=== PATIENT | female | born 1955 | race Caucasian/White ===

== ENCOUNTER → 2020-02-12 14:25 | Outpatient (CLI) | payer BC, SELFPAY ==
--- NOTE | 2020-02-12 14:33 | XR_ITS ---
PROCEDURE: XR CHEST AP CLINICAL HISTORY: FLU LIKE SYMPTOMS, COUGH COMPARISON: No exams were available for comparison FINDINGS: The cardiomediastinal silhouette and pulmonary vascularity are within normal limits. The lungs are clear without infiltrates, suspicious nodules, or pleural effusions. No acute bony abnormalities. IMPRESSION: No acute findings. Dictated by: Kirby Manzo MD 02/12/2020 15:18 Electronically signed by Kirby Manzo MD in [facility] 02/12/2020 15:18
--- NOTE | 2020-02-13 19:30 | PC.NURSE ---
covid-19 test results negative. patient notified.
[2020-02-13 19:42] LABS: Covid-19 Nasal PCR Sendout Lex NOT DETECTED
--- NOTE | 2020-02-14 10:30 | PC.NURSE ---
Notified Holly LOPEZ of negative COVID 19 results
== END ==
PROVIDERS: Visit Provider Nurse Practitioner
DX: R68.89 Other general symptoms and signs (principal); R05 Cough
CPT/HCPCS: 71045

== ENCOUNTER → 2020-11-04 09:42 | Outpatient (CLI) | payer BC, SELFPAY ==
--- NOTE | 2020-11-04 09:48 | XR_ITS ---
PROCEDURE: XR LUMBAR SPINE MIN 4V CLINICAL INDICATION: LUMBAR PAIN W/RADICULOPATHY,S/P LUMBAR SURGERY COMPARISON: CR LS5 LUMBAR SPINE 5 VIEWS from 12/19/2016 FINDINGS: Mild diffuse levo scoliotic curvature between T11 and L5. 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 There are laminectomy defects L5. There are mild multilevel degenerate changes with disc space narrowing at the L2-3, L3-4 and L4-5 levels along with minor anterior osteophytic spurring at these levels. There are hypertrophic facet changes at the L4-5 and L5-S1 levels. There is suggestion of bony spinal stenosis at the L4 and L5 levels. There is no pars defect. The SI joints are normal. IMPRESSION: Mild multilevel degenerate changes moderate hypertrophic facet changes lower lumbar spine with suggestion of possible bony spinal stenosis and if clinically indicated follow-up CT scan lumbar spine would be helpful for additional evaluation. Dictated by: Dr. Reginaldo Mckoy MD 11/04/2020 10:35 Dr. Reginaldo Mckoy MD in [facility] 11/04/2020 10:35
== END ==
PROVIDERS: PCP Nurse Practitioner Family; Visit Provider Nurse Practitioner Family
DX: M54.16 Radiculopathy, lumbar region (principal); Z98.890 Other specified postprocedural states
CPT/HCPCS: 72110

== ENCOUNTER 2021-02-07 14:00 | Outpatient (RCR) | payer BC, SELFPAY ==
--- NOTE | 2020-12-13 10:40 | HMH.PTOPEV ---
PT Outpatient Evaluation Rehab PT Outpatient Evaluation Start: 12/13/20 09:48 Freq: Status: Active Protocol: Document 12/13/20 10:20 CASSIDY (Rec: 12/13/20 10:39 [email or web address] [id number]) Electronically Signed By Tae Jain, PT 12/13/20 10:20 Outpatient Therapy Subjective History Subjective History Patient is a 65 year old female presenting to outpatient PT with reports of chronic LBP with LLE radicular symptoms to the L calf/foot. Patient underwent L4/5 laminectomy 4 years ago per patient report. Most recent imaging indicates multi-level degenerative changes and stenosis. No other comorbidities to report. Chief Complaint Pain,Stiff,Paresthesia, Weakness Symptom Type Ache,Burning,Numbness,Tingling Symptoms Relieved By Rest/Positioning,Prescription Meds Symptoms Aggravated By Standing,Bending/Stooping, Physical Activity,Lifting Prior Functional Limitations None Current Functional Limitations Lifting,Housework,Standing, Squatting,Recreation Activity, Walking,Bending/Stooping Symptom Description Constant but Variable Level of pain today (0-10) 5 Pain scale - at its best (0-10) 4 Pain scale - at its worst (0-10) 8 Lumbopelvic Eval Posture Thoracic Spine Posture Standing Position Neutral Lumbar Spine Posture Standing Position Neutral Assistive device Assistive Devices None / NA Palapation tenderness left lumbar spinal tenderness Yes: L4-S1 3/4 paraspinal tenderness Yes: buttock tenderness Yes: 3/4 Accessory Movement L4 left L5 left S1 left Range of Motion Lumbar Spine Active Flexion Range of 70 Motion (degrees) Lumbar Spine Active Extension Range of 15 Motion (degrees) Left Lumbar Spine Lateral Flexion Active 16 Range of Motion (degrees) Right Lumbar Spine Lateral Flexion 20 Active Range of Motion (degrees) Lumbar Spine ROM Limitations Soft Tissue Tightness,Bony Restriction Manual Muscle Test Left Knee Extension Strength Grade 4- Good- Knee Flexion Strength Grade 4- Good- Hip Flexion Strength Grade 4- Good- Extensor Hallucis Longus Strength Grade 4- Good- Ankle Dorsiflexion Strength Grade 4- Good- Gastronemius/S
--- NOTE | 2021-01-17 13:43 | HMH.RHREAS ---
Rehab Reassessment Rehab OP Re-assessment Start: 01/17/21 13:10 Freq: Status: Active Protocol: Document 01/17/21 13:32 CASSIDY (Rec: 01/17/21 13:42 CASSIDY [id number]) Electronically Signed By Tae Jain, PT 01/17/21 13:32 Rehab Re-assessment Subjective Subjective Patient reports 15% improvement since start of care. Objective Objective Notes AROM: flx 78; ext 18;SBr 24; SBl 28 MMT: RLE WNL; LLE 4+/5 grossly Pain: 5/10 today; 9/10 at worst over past week Neuro: DTR 1+ grossly L TTP: L L4/5/S1 3/4 Assessment Progress Assessment Slower Than Expected Assessment Notes Compliance noted with HEP. Rx has consisted of ther-ex for BLE/LS stretching, lumbar mechanical traction and modalities for pain/ inflammation. Minimal progress noted to date. PT strongly suggests return to [facility] for further imaging secondary to lack of progress. She continues to have functional limitations with all standing/ ambulatory, bending/lifting activities. Patient goals met STG 2 Goals Not Met All others Revised Goals NA Plan Plan Continue with current POC. Frequency of Therapy 2x/week Duration of therapy 4 weeks Time and Billing Re-Eval Time 15 Re-Eval Billing Units 1 PHYSICIAN CERTIFICATION: I certify the specified therapy services for Tatiana Ch are required, authorized, and reviewed every 30 days.
== END 2021-02-07 14:05 | disposition home or self-care (01) ==
LOC: PT 14:00
PROVIDERS: PCP Nurse Practitioner Family; Visit Provider Nurse Practitioner Family
DX: M54.16 Radiculopathy, lumbar region (principal); Z98.890 Other specified postprocedural states
CPT/HCPCS: 97010; 97012; 97014; 97110; 97163; 97164; G0283

== ENCOUNTER → 2021-09-08 12:28 | Outpatient (CLI) | payer BC, SELFPAY ==
--- NOTE | 2021-09-08 13:36 | XR_ITS ---
PROCEDURE: XR KUB CLINICAL INDICATION: DIARRHEA,RLQ PAIN,LLQ PAIN COMPARISON: No exams were available for comparison FINDINGS: No evidence of intestinal obstruction. There is a 2 mm stone overlying the upper pole of the right kidney. 2 mm stone overlies the lower pole of the left kidney. There are postsurgical changes of the lumbar spine with mild lumbar curvature convex left. Prior posterior fusion at L3, L4, L5, and S1. There is a 2 mm calcific density in the right mid pelvic region which could be vascular in nature or could be due to a ureteral stone. IMPRESSION: Bilateral nephrolithiasis. Possible right distal ureteral stone versus phleboliths. Postsurgical changes lumbar spine Dictated by: Kirby Manzo MD 09/08/2021 17:48 Kirby Manzo MD in [facility] 09/08/2021 17:48
[2021-09-08 13:45] LABS: Basophils # 0.1 K/mm3 (0-0.2); Basophils % 0.3 % (0.1-2.0); Eosinophils # 0.2 K/mm3 (0.0-0.4); Eosinophils % 1.1 % (0.1-12.0); Hematocrit 45.6 % (37.0-47.0); Hemoglobin 14.6 g/dL (12.2-16.2); Lymphocytes # 2.6 K/mm3 (0.7-4.5); Lymphocytes % 15.4 % (10-50); Mean Corpuscular HGB Conc 31.9 g/dL (31.8-35.4); Mean Corpuscular Hemoglobin 29.8 pg (27.0-31.2); Mean Corpuscular Volume 93.5 fl (81-99); Mean Platelet Volume 8.2 fl (7.4-10.4); Monocytes # 0.7 K/mm3 (0.1-1.0); Monocytes % 4.2 % (1.7-9.3); Neutrophils # 13.2 K/mm3 (1.8-7.8); Platelet Count 429 K/mm3 (142-424); Red Blood Count 4.88 M/mm3 (4.20-5.40); Red Cell Distribution Width 14.3 % (11.5-17.5); White Blood Count 16.7 K/mm3 (4.8-10.8)
[2021-09-08 13:51] LABS: MANUAL DIFFERENTIAL MANUAL DIFFERENTIAL (MANUAL DIFF)
[2021-09-08 14:15] LABS: Alanine Aminotransferase 15 U/L (12-78); Albumin Level 4.2 g/dl (3.5-5.0); Albumin/Globulin Ratio 1.4 (1.1-1.8); Alkaline Phosphatase 118 U/L (38-126); Aspartate Amino Transferase 22 U/L (14-36); Bilirubin,Total 0.6 mg/dl (0.2-1.3); Blood Urea Nitrogen 11 mg/dl (7-17); Carbon Dioxide 27 mmol/L (22.0-30.0); Chloride 99 mmol/L (98-107); Estimated Glomerular Filt Rate 124 ml/min (>60); GFR (African American) 150 ML/MIN (>60); Globulin 2.9 g/dL (1.3-3.2); Glucose 126 mg/dl (74-100); Sodium 136 mmol/L (136-145); Total Protein,Serum 7.1 g/dl (6.3-8.2)
[2021-09-08 15:39] LABS: Eosinophils % 1 % (0-3); Lymphocytes % 13 % (10-50); Monocytes % 4 % (2-9); Neutrophils % 77 % (42-76); Total Cells Counted 100
[2021-09-08 15:40] LABS: Hypochromasia 1+; Platelet Estimate Normal
[2021-09-08 16:01] LABS: Adenovirus F 40/41, stool Not Detected (NotDetected); Astrovirus Not Detected (NotDetected); Campylobacter Not Detected (NotDetected); Clostridium Difficile A/B, PCR Not Detected (NotDetected); Cryptosporidium Not Detected (NotDetected); Cyclospora Cayetanesis Not Detected (NotDetected); Entamoeba histolytica Not Detected (NotDetected); Enteroaggregative E coli Not Detected (NotDetected); Enteropathogenic E coli Not Detected (NotDetected); Enterotoxigenic E coli Not Detected (NotDetected); Giardia lamblia Not Detected (NotDetected); Norovirus Not Detected (NotDetected); Plesimonas Shigalloides, PCR Not Detected (NotDetected); Rotavirus A Not Detected (NotDetected); Salmonella, PCR Not Detected (NotDetected); Sapovirus Not Detected (NotDetected); Shiga-like toxin E coli Not Detected (NotDetected); Shigella Enterovasive E coli Not Detected (NotDetected); Vibrio Cholerae Not Detected (NotDetected); Vibrio, PCR Not Detected (NotDetected); Yersinia Entercolitica, PCR Not Detected (NotDetected)
== END ==
PROVIDERS: PCP Nurse Practitioner Family; Visit Provider Nurse Practitioner Family
DX: R10.31 Right lower quadrant pain (principal); R10.32 Left lower quadrant pain; R19.7 Diarrhea, unspecified; K92.1 Melena
CPT/HCPCS: 36415; 74018; 80053; 85007; 85025; 87507

== ENCOUNTER 2021-09-08 17:04 | Observation (INO) | payer BC, SELFPAY ==
[2021-09-08 17:06] VITALS: BP 144/71; PULSE 112; RESP 18; TEMP 37.1; O2SAT 98; BMI 28.7
--- NOTE | 2021-09-08 17:23 | CT_ITS ---
PROCEDURE INFORMATION: Exam: CT Abdomen And Pelvis With Contrast Exam date and time: 09/08/2021 5:23 PM Age: 66 years old Clinical indication: Other: Rectal bleeding; Prior surgery; Additional info: Abd pain, rectal bleeding TECHNIQUE: Imaging protocol: Computed tomography of the abdomen and pelvis with contrast. Total images: 284 Radiation optimization: All CT scans at this facility use at least one of these dose optimization techniques: automated exposure control; mA and/or kV adjustment per patient size (includes targeted exams where dose is matched to clinical indication); or iterative reconstruction. Contrast material: ISOVUE; Contrast volume: 75 ml; Contrast route: IV; COMPARISON: CR XR KUB 09/08/2021 2:00 PM FINDINGS: Lungs: Visualized lung bases are clear. Small fatty Bochdalek's hernia in the posterior left basilar distribution with no evidence of associated bowel herniation or solid organ herniation. Heart: Heart size normal. Mediastinal space: The visualized distal esophagus is largely contracted without gross abnormality. Liver: Question mild generalized fatty infiltration of the liver. Normal contour. No mass lesions. No intrahepatic biliary ductal dilatation. Gallbladder and bile ducts: The gallbladder is unremarkable. Mild dilatation of the common bile duct at the level of the pancreatic head measuring 9 mm diameter. No obstructive mass lesions or calcified duct stones are evident by CT. Clinical/laboratory correlation recommended to exclude evidence of biliary obstruction. Consider sonographic assessment as clinically indicated. Pancreas: Normal. No inflammatory changes or ductal dilation. Spleen: Granulomatous calcifications in the spleen without acute splenic abnormality. Adrenal glands: Normal. No adrenal mass. Kidneys and ureters: No acute abnormalities. No hydronephrosis or hydroureter. 4 mm nonobstructive right renal stone. Stomach and bowel: The stomach is largely contracted without gross abnormality. The small bowel is nondilated with no gross abnormality. There is moderate colonic wall thickening and adjacent stranding involving the transverse colon, splenic flexure, descending colon, and to a lesser degree the sigmoid colon and rectum, consistent with colitis. No evidence of perforation or abscess. Appendix: The appendix is normal in caliber and demonstrates no evidence of appendicitis. Intraperitoneal space: No free fluid or air. Vasculature: Moderate atherosclerotic aortoiliac calcification without aneurysm. Post ostial soft plaque in the proximal celiac artery with suspected moderate stenosis of 60-70%. Circumaortic left renal vein configuration noted. Lymph nodes: No adenopathy. Urinary bladder: Unremarkable as visualized. Reproductive: Unremarkable as visualized. Bones/joints: No acute osseous abnormalities. L4-L5 laminectomy with L3-S1 posterior fusion and L4-S1 interbody fusion hardware. No gross hardware complication. Moderate disc degenerative changes and grade 1 retrolisthesis L2-L3. Soft tissues: Very small fatty umbilical hernia . No evidence of associated bowel herniation or strangulation. IMPRESSION: 1. There is evidence of moderate colitis involving the distal colon. No perforation or abscess. 2. Dilated common bile duct at 9 mm diameter. No calcified duct stones or obstructive mass lesions are evident by CT. No evidence of pancreatitis. Clinical/laboratory correlation recommended to exclude evidence of biliary obstruction. Consider sonographic assessment as clinically indicated. 3. 4 mm nonobstructive right renal stone. No hydronephrosis. 4. Post ostial stenosis of the celiac arter
[2021-09-08 17:40] LABS: Occult Blood,Stool Positive (Negative)
[2021-09-08 17:53] LABS: INR 0.99 (0.9-1.1); Prothrombin Time 11.2 seconds (10.1-12.5)
--- NOTE | 2021-09-08 17:53 | HMH.EDGENADL ---
ED Disposition Clinical Impression: Bright red blood per rectum, Colitis, Common bile duct dilatation Disposition: Admitted as Observation Condition on Discharge: Good Referrals: Anne Ling APRN [Primary Care Provider] - Time of Disposition: 18:57 - Critical Care Critical Care Time: No Attestation: On 09/08/21, the high probability of a clinically significant, sudden or life threatening deterioration of the following system(s) required my full and direct attention, intervention and personal management. The time I documented below is in addition to time spent performing reported procedures but includes the following listed in this critical care notation. Medical Decision Making - Medical Records Medical records reviewed: Yes: I reviewed the patient's medical records. - Farhad Inquiry Pt receiving controlled substance: No Vital Signs: 09/08/21 17:06 Temperature 98.7 F Temperature Source Oral Pulse Rate [Radial] 112 H Respiratory Rate 18 Blood Pressure [Right Arm] 144/71 H Blood Pressure Mean [Right Arm] 95 Blood Pressure Position [Right Arm] Sitting 02 Sat by Pulse Oximetry 98 Oxygen Delivery Method Room Air - Lab Data Lab results reviewed: Yes: I reviewed the patient's lab results. Lab Results 09/08/21 03:45: Stool Occult Blood Positive A 09/08/21 17:35: PT 11.2, INR 0.99 09/08/21 17:35: Hgb 13.5, Hct 42.2 09/08/21 18:13: Blood Type O Positive Result diagrams: 09/08/21 17:35 Orders (Tests/Meds): ED MEDICATIONS Discontinued Medications Generic Name Dose Route Start Last Admin Trade Name Freq PRN Reason Stop Dose Admin Iopamidol 75 ml 09/08/21 17:49 09/08/21 17:49 Iopamidol-370 (76%);100ml Bottle IV 09/08/21 17:50 75 ml ONCE ONE Administration Sodium Chloride 10 ml 09/08/21 17:49 09/08/21 17:49 Sodium Chloride 0.9% 10ml Syr (Rad Only) IV 09/08/21 17:50 10 ml ONCE ONE Administration ORDERS Category Date Time Status Type and Screen Stat BBK 09/08/21 18:13 Results - CT Data CT Scan: Abdomen, Pelvis Time Received: 18:[address] Reviewed: Yes: I have viewed the radiologist's interpretation Preliminary Findings: Abnormal Findings Narrative: Moderate colitis, stenosis of celiac artery, dilated common bile duct Medical Decision Narrative: 66yo F evaluated for GI bleed. Patient is in no acute distress on initial evaluation. Patient has no significant tenderness on palpation of her abdomen. Her vital signs are unremarkable. I reviewed the patient's blood work from earlier today and she has a stable H/H. We will repeat an H&H at this time as is been 5 [address] Patient sent for [address] of the abdomen and pelvis with IV contrast. Fecal occult blood testing in the emergency department is positive. Patient CT scan reveals some stenosis of her celiac artery, dilated common bile duct without sign of obstruction. Patient also is a white count of 16.7. Case discussed with Dr. Robins who is agreeable to put the patient in observation and see how she does overnight. He request the ultrasound be ordered for right upper quadrant to be completed in the morning. Patient is agreeable to admission at this time. Reports she is a full code. General Adult HPI - General Stated complaint: Rectal bleeding Time Seen by Provider: 09/08/21 17:05 Mode of Arrival: Ambulatory - History of Present Illness HPI narrative: 66yo F presents the emergency department as directed by her PCPs office. Patient was evaluated there earlier today for bright red blood per rectum. Patient denies previous episodes similar to this. She reports she does not take a blood thinner. Complains of abdominal pain earlier in the day that has nearly resolved at this time. She was called by her PCP to inform her of a leukocytosis and blood in her stool. Directed to come to the emergency department for urgent CT of the abdomen. Patient never underwent colonoscopy. Patient was never smoker. Decreased ap
[2021-09-08 18:11] LABS: Hematocrit 42.2 % (37.0-47.0); Hemoglobin 13.5 g/dL (12.2-16.2)
[2021-09-08 19:59] LABS: Coronavirus 19, PCR Not Detected (NotDetected); Influenza A, PCR Not Detected (NotDetected); Influenza B, PCR Not Detected (NotDetected)
--- NOTE | 2021-09-08 21:53 | PC.NURSE ---
report given to April Alexander rn.
[2021-09-08 21:54] VITALS: BP 147/88; PULSE 98; RESP 16; TEMP 37; O2SAT 99
--- NOTE | 2021-09-08 22:01 | PC.NURSE ---
PT ARRIVED TO FLOOR VIA W/C FROM ED W/STAFF AT 2200
[2021-09-08 22:09] VITALS: BP 141/75; PULSE 96; RESP 20; TEMP 36.6; O2SAT 98; BMI 28.3
[2021-09-09] VITALS: BP 143/59; PULSE 109; RESP 20; TEMP 36.7; O2SAT 97
[2021-09-09 04:00] VITALS: BP 136/70; PULSE 102; RESP 20; TEMP 36.8; O2SAT 97
[2021-09-09 05:00] VITALS: BMI 28.7
--- NOTE | 2021-09-09 05:38 | PC.NURSE ---
Pt has slept at intervals since arrival to floor. C/O discomfort to abdomen with a rating of 2. Pt states she has had some blood in her eliana. Was not observed by staff. Pt was educated by this nurse to not flush toilet and ring out call light for staff to see. VSS at this time. Pt has been tachy at times this shift. Medications administered per jan. LR infusing @ 75 ml/hr. Will continue to monitor.
[2021-09-09 06:07] LABS: Basophils % 0.3 % (0.1-2.0); Eosinophils # 0.3 K/mm3 (0.0-0.4); Hematocrit 36.3 % (37.0-47.0); Lymphocytes # 2.1 K/mm3 (0.7-4.5); Lymphocytes % 16.8 % (10-50); Mean Corpuscular HGB Conc 32.7 g/dL (31.8-35.4); Mean Corpuscular Volume 91.7 fl (81-99); Mean Platelet Volume 7.8 fl (7.4-10.4); Monocytes # 0.5 K/mm3 (0.1-1.0); Monocytes % 4.4 % (1.7-9.3); Neutrophils # 9.4 K/mm3 (1.8-7.8); Neutrophils % 76.5 % (37.0-80.0); Platelet Count 325 K/mm3 (142-424); Red Blood Count 3.96 M/mm3 (4.20-5.40); Red Cell Distribution Width 14.5 % (11.5-17.5); White Blood Count 12.3 K/mm3 (4.8-10.8)
[2021-09-09 06:14] LABS: Anion Gap 9.9 mEq/L (5-15); Blood Urea Nitrogen 7 mg/dl (7-17); Calcium 8.4 mg/dl (8.4-10.2); Carbon Dioxide 27 mmol/L (22.0-30.0); Chloride 104 mmol/L (98-107); Creatinine Clearance Estimated 66 mL/min (50-200); Estimated Glomerular Filt Rate 161 ml/min (>60); GFR (African American) 194 ML/MIN (>60); Glucose 114 mg/dl (74-100); Potassium 3.9 mmoL/L (3.5-5.1); Sodium 137 mmol/L (136-145)
[2021-09-09 06:20] LABS: Hemoglobin 11.9 g/dL (12.2-16.2)
--- NOTE | 2021-09-09 07:14 | HMH.PHAVTE ---
[facility] Pharmacy VTE Monitoring - Patient Demographics Admission date: 09/08/21 Report Date: 09/09/21 Time: 07:15 Allergies/Adverse Reactions: Patient Allergies No Known Allergies Allergy (Verified 09/08/21 17:24) Height: 1.6 m Weight: 73.482 kg Patient Problems: Current Active Problems Bright red blood per rectum (Acute) Colitis (Acute) Common bile duct dilatation (Acute) - VTE Risk Labs: VTE Related Lab Results Hgb 11.9 g/dL (12.2-16.2) L D 09/09/21 05:45 Hct 36.3 % (37.0-47.0) L 09/09/21 05:45 Plt Count 325 K/mm3 (142-424) 09/09/21 05:45 PT 11.2 seconds (10.1-12.5) 09/08/21 17:35 INR 0.99 (0.9-1.1) 09/08/21 17:35 BUN 7 mg/dl (7-17) D 09/09/21 05:45 Creatinine 0.40 mg/dl (0.52-1.04) L 09/09/21 05:45 Estimated Creat Clear 66 mL/min (50-200) 09/09/21 05:45 Was VTE Risk Assessment Performed: Yes - Prophylaxis VTE Prophylaxis Ordered?: Yes Types of VTE Prophylaxis: IPCS Thigh High Location of Applied Device: Bilateral Lower Extremeties
--- NOTE | 2021-09-09 07:15 | HMH.PHAINT ---
MEDICATION RECONCILIATION COMPLETED ON PATIENT USING EXTERNAL FILL HISTORY FROM PHARMACY. -HILARIA HERNÁNDEZ, WALDEMARD
--- NOTE | 2021-09-09 07:29 | US_ITS ---
PROCEDURE: US ABDOMEN LIMITED CLINICAL INDICATION: dilated CBD, abdominal pain COMPARISON: CT CT ABDOMEN PELVIS W CON from 09/08/2021 FINDINGS: PANCREAS: Unremarkable. No obvious mass or abnormal fluid collection. No ductal dilatation LIVER: No focal liver lesions demonstrated. Homogeneous echogenicity. No intrahepatic biliary ductal dilatation evident. There is appropriate direction of blood flow within a non dilated portal vein RIGHT KIDNEY: Unremarkable. Normal size and echogenicity. No hydronephrosis GALLBLADDER: Gallbladder sludge noted. No gallstones are apparent. Common bile duct is upper normal at 7 mm. No pericholecystic fluid. IMPRESSION: There is sludge in the gallbladder. No obvious gallstones. Common bile duct is upper normal at 7 mm. Dictated by: Kirby Manzo MD 09/09/2021 09:45 Kirby Manzo MD in [facility] 09/09/2021 09:45
--- NOTE | 2021-09-09 07:30 | HMH.HP ---
*Admission Date: 09/08/21 *Chief complaint: Abdominal pain *History of present illness: 66-year-old female presented to the emergency department yesterday after being seen in the office with abdominal pain and bloody diarrhea. Symptoms have begun Wednesday evening about 2 hours after patient had had a bowl of ice cream. She estimates 6 bloody stools overnight on Wednesday. She estimates 3-4 bloody stools throughout the day Wednesday. Patient reports a single bloody stool so far this morning. Patient had crampy abdominal pain that was diffuse. She was seen in the office and additional testing was ordered including a diarrhea panel and labs. Labs were relatively stable and diarrhea panel only revealed blood in the stool. Patient was told to come to the emergency department for additional evaluation. She underwent CT scan of the abdomen and pelvis which revealed a dilated common bile duct, ostial stenosis of the celiac artery, and colitis of the descending colon. Patient was admitted for IV fluids and serial monitoring of her H&H. This morning the patient reports abdominal pain is improved but she did have a bloody stool this morning. Patient has never had a colonoscopy. Patient has no personal history of inflammatory bowel disease and is unaware of any family history of IBD or colon cancers [facility] History I have reviewed the patient's past medical history: Yes Medical History: Denies:: Cancer, Diabetes Mellitus Type 1, Diabetes Mellitus Type 2 *Have you ever received a pneumonia vaccine?: No *Have you received a flu vaccine this season?: Yes Other Surgeries: Yes: Tubal Ligation, Other - *Social History Smoking Status: Former smoker Tobacco Type: cigarettes # Packs/Day (cigarettes): 2 Alcohol Intake: never *Occupational Status:: employed *Travel in the last 8 weeks: None Family Hx:: Asthma, Bleeding Disorder, Diabetes Review of Systems - Review of Systems Review of systems:: pertinent systems reviewed and negative unless documented below Meds Home Medications Medication Instructions Recorded Confirmed Type Cyclobenzaprine HCl 10 mg PO TIDP PRN 09/08/21 09/08/21 History [Cyclobenzaprine 10mg Tab*] Fluoxetine HCl 20 mg PO DAILY 09/08/21 09/08/21 History lisinopriL [Lisinopril] 10 mg PO DAILY 09/08/21 09/08/21 History Allergies Allergy/AdvReac Type Severity Reaction Status Date / Time No Known Allergies Allergy Verified 09/08/21 17:24 Exam Vital signs and Labs for Last 24 Hours: Temp Pulse Resp BP Pulse Ox 98.3 F 102 H 20 136/70 97 09/09/21 04:00 09/09/21 04:00 09/09/21 04:00 09/09/21 04:00 09/09/21 04:00 Laboratory Results - last 24 hr 09/08/21 03:45: Stool Occult Blood Positive A 09/08/21 17:35: PT 11.2, INR 0.99 09/08/21 17:35: Hgb 13.5, Hct 42.2 09/08/21 18:13: Blood Type O Positive, Antibody Screen Negative 09/08/21 18:50: SARS-CoV-2 (PCR) Not detected, Influenza A Untype (PCR) Not detected, Influenza Type B (PCR) Not detected 09/09/21 05:45: WBC 12.3 H D, RBC 3.96 L, Hgb 11.9 L D, Hct 36.3 L, MCV 91.7, MCH 30.0, MCHC 32.7, RDW 14.5, Plt Count 325, MPV 7.8, Neut % (Auto) 76.5, Lymph % (Auto) 16.8, Floyd % (Auto) 4.4, Eos % (Auto) 2.0, Baso % (Auto) 0.3, Neut # (Auto) 9.4 H, Lymph # (Auto) 2.1, Floyd # (Auto) 0.5, Eos # (Auto) 0.3, Baso # (Auto) 0.0 09/09/21 05:45: Sodium 137, Potassium 3.9 D, Chloride 104, Carbon Dioxide 27, Anion Gap 9.9, BUN 7 D, Creatinine 0.40 L, Estimated Creat Clear 66, Estimated GFR 161, Est GFR ( Amer) 194 D, Glucose 114 H, Calcium 8.4 I & O for Last 24 hours: Intake & Output 09/06/21 09/07/21 09/08/21 09/09/21 11:59 11:59 11:59 11:59 Weight 162 lb - Constitutional no acute distress - *Routine HEENT Exam Head: Present: normocephalic Eye: Present: EOMI, PERRL ENT: Present: mucous membranes moist - *Routine Neck Exam Present: supple. Absent: lymphadenopathy - *Routine Respiratory Exam Present: CTA bilaterally - *Routine Cardiovascular
[2021-09-09 08:00] VITALS: BP 114/66; PULSE 98; RESP 16; TEMP 36.8; O2SAT 97
[2021-09-09 08:04] LABS: C-Reactive Protein 184.4 mg/L (0-4)
--- NOTE | 2021-09-09 08:20 | PC.NURSE ---
episode of bright red stool
[2021-09-09 08:54] LABS: Erythrocyte Sedimentation Rate 48 mm/hr (0-30)
--- NOTE | 2021-09-09 09:50 | CT_ITS ---
Procedure: CT ANGIO ABDOMEN PELVIS CLINICAL HISTORY: COLITIS COMPARISON: CT CT ABDOMEN PELVIS W CON from 09/08/2021 TECHNIQUE: IV Contrast: 100ml Isovue 370 Axial images obtained with sagittal and coronal reformats. All CT scans at the facility use one or more dose reduction, viz: automated exposure control, ma/kV adjustment per patient size (including targeted exams where dose is matched to indication, i.e. head), or iterative reconstruction technique. FINDINGS: There is critical stenosis of the ostial and post ostial region of the celiac artery of greater than 90 percent with a string sign. The stenosis is 8 mm in length. No significant poststenotic dilatation. The SMA has an unremarkable appearance. The CALLIE is patent. There are 2 right renal arteries with the dominant artery to the mid lower pole of the right kidney and a small more cephalad artery to the upper pole of the right kidney. There are 2 left renal arteries the most superior supplying the upper pole of the left kidney and the inferior left renal artery to the lower pole of the left kidney.No evidence of renal artery stenosis. 4 mm nonobstructing stone upper pole right kidney. No evidence of aortic aneurysm. The iliac arteries are patent. No significant stenosis. There remains thickening the mid and distal aspect of the transverse colon, splenic flexure, in the descending colon. This is probably not singly changed considering that oral contrast is present on this exam no evidence of pneumatosis. No portal venous gas. No free air. No abnormal fluid collections. 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
--- NOTE | 2021-09-09 10:37 | PC.NURSE ---
Notified radiology that patient is done drinking contrast
--- NOTE | 2021-09-09 11:57 | HMH.GSCON ---
*Admission Date: 09/08/21 *Reason for consult:: Descending colitis *History of present illness: Patient is a pleasant 66-year-old female who presented to the emergency department yesterday evening after she was seen in her primary care provider's office with symptoms of abdominal pain and bloody diarrhea. She states that the symptoms began acutely on Wednesday after she had eaten some ice cream. She described severe pain. She had 6 bloody stools overnight on Wednesday night and had 3-4 stools throughout the day on Wednesday prior to admission. She describes the pain as initially severe and across the lower abdomen and beltline area and pelvis. When she was seen and evaluated in the emergency department she underwent blood work and a stool diarrhea panel which was negative for infectious etiology. 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 This morning patient states that she feels better. Her pain is improved and is described similar to being punched in the stomach . She has never undergone previous colonoscopy. She has no history of inflammatory bowel disease. Review of Systems - Review of Systems Review of systems:: pertinent systems reviewed and negative unless documented below [facility] History Medical History: Denies:: Cancer, Diabetes Mellitus Type 1, Diabetes Mellitus Type 2 *Have you ever received a pneumonia vaccine?: No *Have you received a flu vaccine this season?: Yes Other Surgeries: Yes: Tubal Ligation, Other - *Social History Smoking Status: Former smoker Tobacco Type: cigarettes # Packs/Day (cigarettes): 2 Alcohol Intake: never *Occupational Status:: employed *Travel in the last 8 weeks: None Family Hx:: Asthma, Bleeding Disorder, Diabetes Meds Home Medications Medication Instructions Recorded Confirmed Type Cyclobenzaprine HCl 10 mg PO TIDP PRN 09/08/21 09/08/21 History [Cyclobenzaprine 10mg Tab*] Fluoxetine HCl 20 mg PO DAILY 09/08/21 09/08/21 History lisinopriL [Lisinopril] 10 mg PO DAILY 09/08/21 09/08/21 History Allergies Allergy/AdvReac Type Severity Reaction Status Date / Time No Known Allergies Allergy Verified 09/08/21 17:24 Exam Vital signs and Labs for Last 24 Hours: Temp Pulse Resp BP Pulse Ox 98.3 F 98 H 16 114/66 97 09/09/21 08:00 09/09/21 08:00 09/09/21 08:00 09/09/21 08:00 09/09/21 08:00 Laboratory Results - last 24 hr 09/08/21 03:45: Stool Occult Blood Positive A 09/08/21 17:35: PT 11.2, INR 0.99 09/08/21 17:35: Hgb 13.5, Hct 42.2 09/08/21 18:13: Blood Type O Positive, Antibody Screen Negative 09/08/21 18:50: SARS-CoV-2 (PCR) Not detected, Influenza A Untype (PCR) Not detected, Influenza Type B (PCR) Not detected 09/09/21 05:45: WBC 12.3 H D, RBC 3.96 L, Hgb 11.9 L D, Hct 36.3 L, MCV 91.7, MCH 30.0, MCHC 32.7, RDW 14.5, Plt Count 325, MPV 7.8, Neut % (Auto) 76.5, Lymph % (Auto) 16.8, Traill % (Auto) 4.4, Eos % (Auto) 2.0, Baso % (Auto) 0.3, Neut # (Auto) 9.4 H, Lymph # (Auto) 2.1, Traill # (Auto) 0.5, Eos # (Auto) 0.3, Baso # (Auto) 0.0 09/09/21 05:45: Sodium 137, Potassium 3.9 D, Chloride 104, Carbon Dioxide 27, Anion Gap 9.9, BUN 7 D, Creatinine 0.40 L, Estimated Creat Clear 66, Estimated GFR 161, Est GFR ( Amer) 194 D, Glucose 114 H, Calcium 8.4 09/09/21 05:45: ESR 48 H 09/09/21 05:45: C-Reactive Protein 184.4 H I & O for Last 24 hours: Intake & Output 09/06/21 09/07/21 09/08/21 09/09/21 11:59 11:59 11:59 11:59 Weight 162 lb - Constitutional no acute distress - *Routine HEENT Exam Head: Present: normocephalic Eye: Present: EOMI, PERRL ENT: Present: mucous membranes moist - *Routine Neck Exam Present: supple. Absent: lymphadenopathy - *Routine Respiratory Exam Present: CTA bilaterally - *Routine Cardiova
--- NOTE | 2021-09-09 15:26 | PC.NURSE ---
spoke with dr. price's nurse- orders for clear liquid diet as long as patient has had ct. r/v
--- NOTE | 2021-09-09 15:35 | PC.NURSE ---
jello, water, and chicken broth brought into patient.
[2021-09-09 16:00] VITALS: BP 125/67; PULSE 108; RESP 18; TEMP 36.8; O2SAT 99
--- NOTE | 2021-09-09 16:08 | PC.NURSE ---
no change from previous assessment. Patient has denied any pain today. pt reports stomach is sore and tender. patient has had multiple loose red stools today, but recently pt reports bleeding has became less. a/ox4. lungs cta and bowel sounds active x4. iv infusing without difficulty. voiding per usual. pulses 2+ and cap refill <3 seconds. pt denied any numbness/tingling or dizziness. pt has tolerated clear liquids so far. call light within reach and safety measures in place. no needs.
[2021-09-09 20:00] VITALS: BP 152/76; PULSE 107; RESP 18; TEMP 37.3; O2SAT 97
[2021-09-10] VITALS: BP 110/77; PULSE 101; RESP 18; TEMP 37.2; O2SAT 97
[2021-09-10 04:00] VITALS: BP 120/67; PULSE 93; RESP 18; TEMP 37.2; O2SAT 95
[2021-09-10 04:34] VITALS: BMI 28.7
--- NOTE | 2021-09-10 04:48 | PC.NURSE ---
A&OX4. TOLERATING RA WELL. PT HAS HAD NO C/O PAIN/NA/DIARRHEA THUS FAR THIS SHIFT. SLEEPING T/O MAJORITY OF SHIFT. VSS WILL CONTINUE TO MONITOR.
--- NOTE | 2021-09-10 06:44 | HMH.GSPN ---
Subjective Patient reports: feels better Narrative: Patient states that she feels somewhat better. Is passing a significant amount of gas. No additional bloody bowel movements. Still with some abdominal soreness. CT angio yesterday reveals significant stenosis of the celiac artery, 90%, with string sign . SMA is unremarkable. No comment on CALLIE. Progress Note: A&P (1) Colitis Status: Acute (2) Common bile duct dilatation Status: Acute (3) Celiac artery stenosis Status: Acute Assessment and Plan for All Diagnoses:: Descending colon colitis. Given clinical scenario and findings on CT angiogram very likely ischemic colitis. Continue medical management. May need vascular intervention at some point. Patient will at some point require colonoscopy but not in the acute setting. May advance to full liquid diet. Exam Vital signs and Labs for Last 24 Hours: Temp Pulse Resp BP Pulse Ox 98.9 F 93 H 18 120/67 95 09/10/21 04:00 09/10/21 04:00 09/10/21 04:00 09/10/21 04:00 09/10/21 04:00 Laboratory Results - last 24 hr 09/09/21 05:45: ESR 48 H 09/09/21 05:45: C-Reactive Protein 184.4 H I & O for Last 24 hours: Intake & Output 09/07/21 09/08/21 09/09/21 09/10/21 11:59 11:59 11:59 11:59 Weight 162 lb 162 lb - *Routine Abdominal Exam Present: soft. Absent: tenderness
[2021-09-10 07:06] LABS: Anion Gap 6.8 mEq/L (5-15); Blood Urea Nitrogen 4 mg/dl (7-17); Calcium 8.6 mg/dl (8.4-10.2); Carbon Dioxide 29 mmol/L (22.0-30.0); Chloride 103 mmol/L (98-107); Creatinine Clearance Estimated 66 mL/min (50-200); Estimated Glomerular Filt Rate 161 ml/min (>60); GFR (African American) 194 ML/MIN (>60); Glucose 104 mg/dl (74-100); Potassium 3.8 mmoL/L (3.5-5.1); Sodium 135 mmol/L (136-145)
[2021-09-10 07:34] LABS: Basophils # 0.1 K/mm3 (0-0.2); Basophils % 0.4 % (0.1-2.0); Eosinophils # 0.2 K/mm3 (0.0-0.4); Eosinophils % 2.2 % (0.1-12.0); Hematocrit 36.6 % (37.0-47.0); Hemoglobin 11.1 g/dL (12.2-16.2); Lymphocytes # 1.9 K/mm3 (0.7-4.5); Lymphocytes % 18.8 % (10-50); Mean Corpuscular HGB Conc 30.4 g/dL (31.8-35.4); Mean Corpuscular Hemoglobin 29.4 pg (27.0-31.2); Mean Corpuscular Volume 96.4 fl (81-99); Mean Platelet Volume 7.2 fl (7.4-10.4); Monocytes # 0.6 K/mm3 (0.1-1.0); Monocytes % 5.7 % (1.7-9.3); Neutrophils # 7.5 K/mm3 (1.8-7.8); Neutrophils % 72.9 % (37.0-80.0); Platelet Count 285 K/mm3 (142-424); Red Cell Distribution Width 13.7 % (11.5-17.5); White Blood Count 10.2 K/mm3 (4.8-10.8)
--- NOTE | 2021-09-10 07:37 | HMH.ACPN2 ---
Internal Medicine - PN: Subj *Date: 09/10/21 *Time: 07:37 Interval history: Patient reports feeling better. Bright red blood has resolved in bowel movements. CT angiogram yesterday showed severe celiac artery stenosis. Exam Vital signs and Labs for Last 24 Hours: Temp Pulse Resp BP Pulse Ox 98.9 F 93 H 18 120/67 95 09/10/21 04:00 09/10/21 04:00 09/10/21 04:00 09/10/21 04:00 09/10/21 04:00 Laboratory Results - last 24 hr 09/09/21 05:45: ESR 48 H 09/09/21 05:45: C-Reactive Protein 184.4 H 09/10/21 06:11: WBC 10.2, RBC 3.80 L, Hgb 11.1 L, Hct 36.6 L, MCV 96.4, MCH 29.4, MCHC 30.4 L, RDW 13.7, Plt Count 285, MPV 7.2 L, Neut % (Auto) 72.9, Lymph % (Auto) 18.8, Fleming % (Auto) 5.7, Eos % (Auto) 2.2, Baso % (Auto) 0.4, Neut # (Auto) 7.5, Lymph # (Auto) 1.9, Fleming # (Auto) 0.6, Eos # (Auto) 0.2, Baso # (Auto) 0.1 09/10/21 06:11: Sodium 135 L, Potassium 3.8, Chloride 103, Carbon Dioxide 29, Anion Gap 6.8, BUN 4 L D, Creatinine 0.40 L, Estimated Creat Clear 66, Estimated GFR 161, Est GFR ( Amer) 194, Glucose 104 H, Calcium 8.6 I & O for Last 24 hours: Intake & Output 09/07/21 09/08/21 09/09/21 09/10/21 11:59 11:59 11:59 11:59 Weight 162 lb 162 lb - Constitutional no acute distress - *Routine Abdominal Exam Present: soft, normoactive bowel sounds. Absent: tenderness Assessment and Plan (1) Colitis Status: Acute Category: Medical Code(s): K52.9 - Noninfective gastroenteritis and colitis, unspecified (2) Common bile duct dilatation Status: Acute Category: Medical Code(s): K83.8 - Other specified diseases of biliary tract (3) Celiac artery stenosis Status: Acute Category: Medical Code(s): I77.4 - Celiac artery compression syndrome - Assessment and plan all Dx Assessment and Plan for all problems:: 1. Advance diet to full liquids 2. Await CBC and may possibly need another H&H this afternoon to assess for ongoing blood loss 3. Patient will need colonoscopy in 2 to 3 weeks 4. Patient be started on sulfasalazine 500 mg 3 times daily 5. If patient's H&H remained stable and she tolerates full liquid diet patient may be discharged home later this evening 6. Once patient's GI issues are fully addressed she will need vascular intervention for her severe celiac artery stenosis
[2021-09-10 07:55] VITALS: BP 123/67; PULSE 95; RESP 16; TEMP 36.9; O2SAT 95
[2021-09-10 08:00] VITALS: PULSE 95; RESP 16; O2SAT 95
--- NOTE | 2021-10-10 08:27 | HMH.DCSUM ---
General - General Admission date:: 09/08/21 Discharge date: 09/10/21 HPI HPI: 66-year-old female presented to the emergency department yesterday after being seen in the office with abdominal pain and bloody diarrhea. Symptoms have begun Wednesday evening about 2 hours after patient had had a bowl of ice cream. She estimates 6 bloody stools overnight on Wednesday. She estimates 3-4 bloody stools throughout the day Wednesday. Patient reports a single bloody stool so far this morning. Patient had crampy abdominal pain that was diffuse. She was seen in the office and additional testing was ordered including a diarrhea panel and labs. Labs were relatively stable and diarrhea panel only revealed blood in the stool. Patient was told to come to the emergency department for additional evaluation. She underwent CT scan of the abdomen and pelvis which revealed a dilated common bile duct, ostial stenosis of the celiac artery, and colitis of the descending colon. Patient was admitted for IV fluids and serial monitoring of her H&H. This morning the patient reports abdominal pain is improved but she did have a bloody stool this morning. Patient has never had a colonoscopy. Patient has no personal history of inflammatory bowel disease and is unaware of any family history of IBD or colon cancers Hospital Course Hospital Course: Patient was admitted for hemorrhagic colitis and monitoring for worsening anemia. Patient H/H remained stable during ospitalizatino. General Surgery was consulted. Prophylactic antibiotics were started. CT angio was performed which confirmed severe celiac stenosis. Once patient was stable she was discharged to home. At the time of discharge patient no longer had signs of symptoms of active bleeding. Objective Vital signs: Temp Pulse Resp BP Pulse Ox 98.4 F 95 H 16 123/67 95 09/10/21 07:55 09/10/21 08:00 09/10/21 08:00 09/10/21 07:55 09/10/21 08:00 DS: Diagnosis - Discharge Diagnosis (1) Colitis Status: Acute (2) Common bile duct dilatation Status: Acute (3) Celiac artery stenosis Status: Acute Discharge Plan - Patient Discharge Instructions ACTIVITY: Continue current activity DIET: continue same diet Patient Instructions: DI for Crohns Disease, DI for Diarrhea and Traveler's Diarrhea -- Adult, DI for Diarrhea and Traveler's Diarrhea -- Child, DI for Nausea -- Adult, DI for Nausea -- Child, DI for Colitis - Follow up Plan Follow up with: Venkat Robins MD [Staff Physician] - 09/12/21 2:00 pm Disposition: Home, Self-Care Condition at discharge:: Stable Home Medications: Home Medications Medication Instructions Recorded Confirmed Type Cyclobenzaprine HCl 10 mg PO TIDP PRN 09/08/21 10/01/21 History [Cyclobenzaprine 10mg Tab*] Fluoxetine HCl 20 mg PO DAILY 09/08/21 10/08/21 History lisinopriL [Lisinopril] 10 mg PO DAILY 09/08/21 10/08/21 History sulfaSALAzine [Azulfidine 500mg 500 mg PO TID 10/01/21 10/08/21 History Tablet] Prescriptions/Medication Reconciliation: Continued lisinopriL [Lisinopril] 10 mg PO DAILY Fluoxetine HCl 20 mg PO DAILY Cyclobenzaprine HCl [Cyclobenzaprine 10mg Tab*] 10 mg PO TIDP PRN PRN Reason: leg cramps No Action sulfaSALAzine [Azulfidine 500mg Tablet] 500 mg PO TID - Problem Reconciliation Problems Reviewed?: Yes
== END 2021-09-10 15:15 | disposition home or self-care (01) ==
LOC: ER 18:57 → 2ND 21:58
PROVIDERS: Admitting Provider Family Medicine; Emergency Provider Family Medicine; PCP Nurse Practitioner Family; Visit Provider Family Medicine
DX: K62.5 Hemorrhage of anus and rectum (principal); K52.9 Noninfective gastroenteritis and colitis, unspecified; K83.8 Other specified diseases of biliary tract; I77.4 Celiac artery compression syndrome; Z20.822 Contact with and (suspected) exposure to COVID-19; Z79.899 Other long term (current) drug therapy
CPT/HCPCS: 36415; 74174; 74177; 76705; 80048; 82272; 85014; 85018; 85025; 85610; 85651; 86140; 86850; 96365; 96375; 99284; C9803; G0328; G0378; Q9967; U0003; U0005

== ENCOUNTER → 2021-10-06 16:41 | Outpatient (CLI) | payer BC, SELFPAY | PROVIDERS: Visit Provider Surgery | DX: Z01.812 Encounter for preprocedural laboratory examination (principal); Z20.822 Contact with and (suspected) exposure to COVID-19 | CPT/HCPCS: C9803; U0003; U0005 ==

== ENCOUNTER 2021-10-08 10:44 | Day surgery (SDC) | payer BC, SELFPAY ==
[2021-10-01 14:50] VITALS: BMI 28.3
[2021-10-08 10:59] VITALS: BP 138/76; PULSE 90; RESP 18; TEMP 36.9; O2SAT 99
--- NOTE | 2021-10-08 11:12 | P.PN_ITS ---
[facility] Anesthesia Checklist - Patient Identification Patient Identification: Arm Band - Structural Data Admitted From: Home Planned Operative Procedure/s: colonoscopy Consent for Planned Operative Procedure(s) Verified: Yes Verified Documents: Surgical Consent, History and Physical - NPO Status Verified Time NPO: 00:00 - Additional verifications Anesthesia Reactions: No - Airway Assessment C-Spine Mobility Assessed: Yes (mp2) TMJ Mobility Assessed: Yes Dentition: Good Dentition - Neurological Assessment Level of Consciousness: Awake, Alert - Anesthesia Plan Anesthesia Risk discussed: Yes Anesthesia Plan: Verified ASA Class: II Anesthesia Type: MAC [facility] History I have reviewed the patient's past medical history: Yes Medical History: Reports:: Anxiety, Hypertension Denies:: Cancer, Diabetes Mellitus Type 1, Diabetes Mellitus Type 2, Internal Pacemaker, MRSA, Seizures *Have you ever received a pneumonia vaccine?: No *Have you received a flu vaccine this season?: Yes Anesthesia experience/problems:: nac Laterality Cases: Bilateral: Cataract Other Surgeries: Yes: Tubal Ligation, Other. No: Pacemaker Amputation: No Fractures: No - *Social History Last grade of school completed: High school graduate Smoking Status: Former smoker Tobacco Type: cigarettes # Packs/Day (cigarettes): 2 #Yrs smoked (if former smoker): 25 Alcohol Intake: never Substance Use Type: denies use *Occupational Status:: employed Housing: house Household Members: spouse *Travel in the last 8 weeks: None Family Hx:: Diabetes
[2021-10-08 11:13] VITALS: O2SAT 97
[2021-10-08 11:55] VITALS: BP 115/67; PULSE 80; RESP 16; TEMP 36.1; O2SAT 100
--- NOTE | 2021-10-08 11:56 | HMH.SCOPE ---
- Procedure: Date: 10/08/21 Patient Date of :: 1955 Procedure Performed:: Colonoscopy to terminal ileum with polypectomy and biopsies Indications:: Patient presents for colonoscopy. She is a pleasant 66-year-old female who presented to the emergency department 09/08/21 after she was seen in her primary care provider's office with symptoms of abdominal pain and bloody diarrhea. She states that the symptoms began acutely on 09/07/21 after she had eaten some ice cream. She described severe pain. She had multiple bloody stools and significant lower abdominal pain. When she was seen and evaluated in the emergency department she underwent blood work and a stool diarrhea panel which was negative for infectious etiology. 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 She did undergo CT angiogram which revealed severe celiac stenosis but otherwise unremarkable. She was managed as an outpatient and has been on sulfasalazine. Her symptoms have basically resolved. She has never had prior colonoscopy. Performing Provider:: Jose Schmid MD Referring Provider:: Venkat Robins MD Sedation:: MAC sedation Procedure:: Patient was taken to endoscopy procedure room and positioned in lateral decubitus position. Adequate intravenous sedation was achieved with anesthesia titration of propofol. Variable stiffness Olympus colonoscope was inserted via the anus. It was advanced to the cecum with some difficulty due to significant floppiness and redundancy of the sigmoid colon. Ileocecal valve and appendiceal orifice were clearly identified. Colonic preparation was good and visualization was good. Colonoscope was advanced a short distance into the terminal ileum which appeared grossly normal. Colonoscope was withdrawn through the colon with careful surveillance. In the ascending colon there was a tiny polyp removed with cold biopsy forceps. Near the splenic flexure there was a small polyp removed with cold snare. Descending colon appeared unremarkable but multiple cold biopsies were obtained to evaluate for microscopic colitis. In the rectosigmoid and rectal area there were several hyperplastic appearing polyps which were removed with cold biopsy forceps. Retroflexion within the rectum revealed no evidence of any pathologic internal hemorrhoids. Colonoscope was withdrawn. Findings:: No obvious evidence of colitis. Small polyps as noted above Recommendations:: Plan will be to follow-up on the results of the biopsies to evaluate for microscopic colitis. Pending the polyps may need repeat colonoscopy 3 to 5 years. Complications:: None immediately apparent Estimated blood obtained (mL): 3
[2021-10-08 12:05] VITALS: BP 117/64; PULSE 82; RESP 16; O2SAT 98
[2021-10-08 12:15] VITALS: BP 125/74; PULSE 80; RESP 16; O2SAT 100
[2021-10-08 12:25] VITALS: BP 122/72; PULSE 72; RESP 16; O2SAT 100
== END 2021-10-08 12:25 | disposition home or self-care (01) ==
LOC: OUTP 10:45
PROVIDERS: PCP Nurse Practitioner Family; Visit Provider Surgery
PROC: 0DJD8ZZ Inspection of Lower Intestinal Tract, Via Natural or Artificial Opening Endoscopic (ICD-10-PCS; CPT 45385; principal; 2021-10-08 14:00)
DX: K63.5 Polyp of colon (principal); K56.2 Volvulus; R10.9 Unspecified abdominal pain; R19.7 Diarrhea, unspecified; K92.1 Melena; F41.9 Anxiety disorder, unspecified; I10 Essential (primary) hypertension; Z79.899 Other long term (current) drug therapy; Z87.891 Personal history of nicotine dependence; Z83.3 Family history of diabetes mellitus
CPT/HCPCS: 45385; 45380; J2704

== ENCOUNTER → 2021-11-10 11:57 | Outpatient (CLI) | payer BC, SELFPAY ==
[2021-11-10 12:26] LABS: Basophils # 0.1 K/mm3 (0-0.2); Eosinophils # 0.3 K/mm3 (0.0-0.4); Eosinophils % 4.1 % (0.1-12.0); Hematocrit 45.5 % (37.0-47.0); Hemoglobin 14.3 g/dL (12.2-16.2); Lymphocytes # 2.4 K/mm3 (0.7-4.5); Lymphocytes % 28.2 % (10-50); Mean Corpuscular HGB Conc 31.5 g/dL (31.8-35.4); Mean Corpuscular Volume 95.4 fl (81-99); Mean Platelet Volume 7.2 fl (7.4-10.4); Monocytes # 0.4 K/mm3 (0.1-1.0); Monocytes % 4.6 % (1.7-9.3); Neutrophils # 5.2 K/mm3 (1.8-7.8); Platelet Count 352 K/mm3 (142-424); Red Blood Count 4.76 M/mm3 (4.20-5.40); Red Cell Distribution Width 13.8 % (11.5-17.5); White Blood Count 8.4 K/mm3 (4.8-10.8)
[2021-11-10 13:43] LABS: Chloride 100 mmol/L (98-107); Potassium 4.6 mmoL/L (3.5-5.1); Sodium 139 mmol/L (136-145)
[2021-11-10 13:46] LABS: Blood Urea Nitrogen 8 mg/dl (7-17); Estimated Glomerular Filt Rate 124 ml/min (>60); GFR (African American) 150 ML/MIN (>60)
[2021-11-10 13:47] LABS: Anion Gap 14.6 mEq/L (5-15); Calcium 9.7 mg/dl (8.4-10.2); Carbon Dioxide 29 mmol/L (22.0-30.0); Glucose 102 mg/dl (74-100)
== END ==
PROVIDERS: Visit Provider Nurse Practitioner Family
DX: I10 Essential (primary) hypertension (principal); I77.1 Stricture of artery; I99.9 Unspecified disorder of circulatory system; K52.9 Noninfective gastroenteritis and colitis, unspecified; R63.4 Abnormal weight loss; R93.5 Abnormal findings on diagnostic imaging of other abdominal regions, including retroperitoneum; R94.31 Abnormal electrocardiogram [ECG] [EKG]; I63.9 Cerebral infarction, unspecified
CPT/HCPCS: 36415; 80048; 85025

== ENCOUNTER → 2021-11-11 16:42 | Outpatient (CLI) | payer BC, SELFPAY | PROVIDERS: Visit Provider Nurse Practitioner Family | DX: Z01.812 Encounter for preprocedural laboratory examination (principal); Z11.52 Encounter for screening for COVID-19; I77.1 Stricture of artery; I99.9 Unspecified disorder of circulatory system; I10 Essential (primary) hypertension; K52.9 Noninfective gastroenteritis and colitis, unspecified; R63.4 Abnormal weight loss; R93.5 Abnormal findings on diagnostic imaging of other abdominal regions, including retroperitoneum; R94.31 Abnormal electrocardiogram [ECG] [EKG] | CPT/HCPCS: C9803; U0003; U0005 ==

== ENCOUNTER 2021-11-13 09:21 | Day surgery (SDC) | payer BC, SELFPAY ==
[2021-11-13] VITALS (10 sets, daily range): BP systolic 112–173; BP diastolic 66–81; PULSE 78–91; RESP 18–20; O2SAT 94–98; BMI 28.0
--- NOTE | 2021-11-13 07:13 | IR_ITS ---
APPROVED REPORT Patient Location: Outpatient PROCEDURES Right radial arterial access Catheter placement in the celiac artery Bare-metal stent deployment to the ostial proximal celiac artery INDICATION Mesenteric ischemia, Ischemic colitis, Severe stenosis in the ostial proximal celiac artery Informed consent was obtained prior to the procedure. COMPLICATIONS None Estimated Blood Loss: Less than 10 mls TECHNIQUE 1% lidocaine used anesthetize the right anterior aspect of the right wrist. The right radial artery was accessed via the Salinger technique and a 6 Mongolian sheath was placed in the right radial artery. An arterial cocktail was administered per protocol followed by a 6 Mongolian AR-1 guide catheter which was used to cannulate the celiac artery and perform angiography. Following this therapeutic heparin was administered and a Choice PT extra-support wire was placed distally. A 6.5 x 12 mm Herculink stent was deployed at 18 trang reducing the severe stenosis to 0%. Excellent angiographic results were obtained at the end the procedure the apparatus was removed the sheath was removed good hemostasis was achieved using TR banding patient was transferred to the postop putting her stable addition ANGIOGRAPHIC RESULTS Celiac artery has an ostial proximal 90% stenosis IMPRESSION Severe celiac artery stenosis Successful percutaneous revascularization of celiac artery severe disease reduced to 0% with 1 bare-metal balloon expandable stent PLAN 1. Dual antiplatelet therapy for 1 month 2. Evaluation for probably vascular disease with specific attention being paid to coronary artery disease 3. LDL less than 55 4. Rest factor modification Electronically signed by : Baldemar Gil MD 11/13/2021 13:54:31
--- NOTE | 2021-11-13 09:26 | CA_ITS ---
APPROVED REPORT EXAM: Comprehensive 2D, Doppler, and color-flow Echocardiogram Deputy Editor In Chief: Astrid Sahu RVT Ht: 5 ft 3 in Wt: 158lbs BSA: 1.75 BP: 140/80 mmHg Indications: ABN EKG,CELIAC ART STENOSIS,HTN, EX SMOKER 2D Dimensions LVOT 1.94 cm (M/F) 1.5-2.5 LA Volume 13.70 mL LA Volume Index 7.82 mL/m2 (M/F) 16-34 M-Mode Dimensions RVDd 2.15 cm (0.9-2.6) LA Diam 3.19 cm (1.9-4.0) LVDd 3.83 cm (3.5-5.7) Ao Diam 2.56 cm (2.0-3.7) LVDs 2.33 cm (3.5-5.7) IVSd 1.00 cm (0.6-1.1) PWd 0.50 cm (0.6-1.1) EF (Teich) 70.40% FS 39.20% EDV (Teich) 63.10 mL TAPSE 3.01 (<1.7) ESV (Teich) 18.70 mL LV Diastology E Decel Time 233.00 (160-240 msec) E/A Ratio 0.6 MED E' 6.00 (< 7 cm/sec) E'/MED E' Ratio 12.52 (>14) LAT E' 8.80 (<10 cm/sec) E/LAT E' Ratio 8.53 (>14) Aortic Valve LVOT Max 114.00 (70-110 cm/s) LVOT VTI 22.42 cm AoV Peak Chapin. 177.00 (50-130 cm/s) AO Peak GR. 12.60 mmHg AO Mean GR. 6.50 (<5 mmHg) AO VTI 33.88 (18-25 cm) DONALD (VTI) 1.96 (2.5-4.5 cm2) Mitral Valve MV E Max Chapin. 75.00 (40-130 cm/s) MV A Velocity 117.00 (40-130 cm/s) E/A Ratio 0.64 MV Decel. Time 233.00 (160-240 ms) MV PHT 68.00 ms Pulmonary Valve PV Peak Velocity 87.00 (50-150 cm/s) Left Ventricle Left atrium is mildly enlarged, left ventricle is normal size, mild concentric left ventricular hypertrophy, visually estimated ejection fraction 55% with no regional wall motion abnormality, grade 1 diastolic dysfunction seen without tissue Doppler evidence of raise left atrial pressure. Right Ventricle Right atrium and right ventricle are normal size and contractility. Aortic Valve Aortic valve is minimally thickened and fibrosed, there is no aortic stenosis or aortic insufficiency. Mitral Valve Mitral valve grossly normal, there is trace mitral regurgitation. Tricuspid Valve Tricuspid grossly normal, there is trace tricuspid regurgitation, tricuspid regurgitation jet velocity is inadequate for calculation of the right ventricular systolic pressure. Pulmonic Valve Pulmonic valve is poorly visualized. Great Vessels Aortic root is normal size. Inferior vena cava is poorly visualized. Pericardium No significant pericardial effusion noted. Conclusion 1. Mildly enlarged left atrium, normal left ventricular size, mild concentric left ventricular hypertrophy, visually estimated ejection fraction 55% with no regional wall motion abnormality, grade 1 diastolic dysfunction seen without tissue Doppler evidence of raise left atrial pressure. 2. Trace mitral and tricuspid regurgitation. 3. No significant pericardial effusion noted. 4. Inferior vena cava is poorly visualized. Electronically signed by : Ru Quezada MD 11/13/2021 16:12:26
--- NOTE | 2021-11-13 13:55 | HMH.PHACLD ---
Tatiana Ch has received discharge medication counseling on the following medications: MD IS STARTING ASPIRIN 81 MG DAILY, LIPITOR 40 MG DAILY, AND PLAVIX 75 MG DAILY. PERIPHERAL STENT.
[2021-11-13 14:37] LABS: CATHL Activated Clotting Time 281 SEC (74-125)
== END 2021-11-13 15:00 ==
LOC: CATHLAB 09:22
PROVIDERS: PCP Nurse Practitioner Family; Visit Provider Internal Medicine
DX: I77.1 Stricture of artery (principal); I10 Essential (primary) hypertension; I99.9 Unspecified disorder of circulatory system; I77.4 Celiac artery compression syndrome; Z79.899 Other long term (current) drug therapy
CPT/HCPCS: 37238; 85347; 93306; 99152; 99153; C1725; C1769; C1876; J1644; J2405; Q9967

== ENCOUNTER → 2021-12-01 14:00 | Outpatient (CLI) | payer BC, SELFPAY ==
[2021-12-01 14:27] LABS: Basophils # 0.1 K/mm3 (0-0.2); Basophils % 0.8 % (0.1-2.0); Eosinophils # 0.4 K/mm3 (0.0-0.4); Eosinophils % 5.3 % (0.1-12.0); Hematocrit 40.4 % (37.0-47.0); Hemoglobin 12.8 g/dL (12.2-16.2); Lymphocytes % 25.1 % (10-50); Mean Corpuscular HGB Conc 31.7 g/dL (31.8-35.4); Mean Corpuscular Hemoglobin 29.8 pg (27.0-31.2); Mean Corpuscular Volume 94.1 fl (81-99); Mean Platelet Volume 6.9 fl (7.4-10.4); Monocytes # 0.3 K/mm3 (0.1-1.0); Monocytes % 3.2 % (1.7-9.3); Neutrophils # 5.2 K/mm3 (1.8-7.8); Neutrophils % 65.6 % (37.0-80.0); Platelet Count 372 K/mm3 (142-424); Red Blood Count 4.29 M/mm3 (4.20-5.40); Red Cell Distribution Width 13.8 % (11.5-17.5)
[2021-12-01 15:08] LABS: Anion Gap 13.9 mEq/L (5-15); Blood Urea Nitrogen 16 mg/dl (7-17); Calcium 9.6 mg/dl (8.4-10.2); Carbon Dioxide 27 mmol/L (22.0-30.0); Chloride 99 mmol/L (98-107); Estimated Glomerular Filt Rate 101 ml/min (>60); GFR (African American) 122 ML/MIN (>60); Glucose 125 mg/dl (74-100); Potassium 3.9 mmoL/L (3.5-5.1); Sodium 136 mmol/L (136-145)
== END ==
PROVIDERS: Visit Provider Internal Medicine
DX: I25.10 Atherosclerotic heart disease of native coronary artery without angina pectoris (principal); Z95.5 Presence of coronary angioplasty implant and graft
CPT/HCPCS: 36415; 80048; 85025

== ENCOUNTER → 2021-12-05 07:05 | Outpatient (CLI) | payer BC, SELFPAY ==
--- NOTE | 2021-12-05 07:06 | CA_ITS ---
APPROVED REPORT Exam: Pharmacologic Technologist: Snehal Messer, Ht: 5 ft 3 in Wt: 161 lbs BSA: 1.76 m2 HR: 87 bpm BP: 150/ mmHg Medical History Medical History: Hyperlipidemia, HTN Medications: Lisinopril,,,,, Aspirin,,,,, MeLOXICAM,,,,, CloPIdogrel,,,,, Cyclobenzaprine,,,,, AtorvaASTATIN,,,,, Cardiac Risk Factors: HTN, Hyperlipidemia Stress Test Details Test: LEXISCAN HR Resting HR: 86 bpm Max Heart Rate (APMHR): 156 bpm Max HR Achieved: 110 bpm Target HR (85% APMHR): 133 bpm % of APMHR: 71 Recovery HR: 106 bpm BP Resting BP: 150/86 mmHg Max BP: 163/77 mmHg Recovery BP: 154.0/80.0 mmHg ECG Clinical Exercise duration: 04:01 min Highest Stage Achieved: Exercise capacity: 1.0 METs Stress ECG Conclusion During lexiscan pt experinced SOA. No CP noted. No arrhythmias noted. <1.5mm ST segment changes. Electronically signed by : Ru Quezada MD 12/05/2021 13:14:34
--- NOTE | 2021-12-05 07:06 | NM_ITS ---
APPROVED REPORT Exam: Nuclear Stress Test Indication: chest pain ..short of breath..fatigue..abn ekg Patient Location: Outpatient Stress Tech: Snehal HARTMAN Tech:Dariana JimenezFAHAD RT(R)(N) Ht: 5 ft 3 in Wt: 160 lbs Bra Size: 38d HR: 87 bpm BP: 150/86 mmHg BSA: 1.76 m2 BMI: 28.3 History: chest pain ..short of breath..fatigue..abn ekg Procedure: Patient received a 0.4 mg of intravenous Lexiscan, resting heart rate 87 bpm, resting blood pressure 150/86 mmHg, with Lexiscan maximum heart rate achived was 109 bpm which is 85 % of the maximum predicted heart rate and blood pressure was 119/66 mmHg. With Lexiscan, patient denied any complaint of chest pain. Electrocardiogram Resting electrocardiogram shows sinus rhythm, with Lexiscan there is less than 1.[address] segment depression from the baseline. The EKG portion of the Lexiscan is nondiagnostic. Cardiac Stress and Resting SPECT Images: Cardiac Stress and Resting SPECT images were obtained using technetium 99m Myoview 29.7 mCi stress and 10.51 mCi at rest. Gated SPECT for analysis of segmental wall motion and calculation of the ejection fraction also done. Prone images were also obtained. Cardiac stress and resting SPECT images show uniform myocardial activity without segmental perfusion abnormality, computer derived ejection fraction is over 65% with no regional wall motion abnormality, right ventricle is normal size and contractility. Conclusion: 1. The EKG portion of the Lexiscan Myoview is nondiagnostic. 2. No scintigraphic evidence of reversible ischemia seen, computer derived ejection fraction is over 65% with no regional wall motion abnormality, right ventricle is normal size and contractility. 3. Normal Lexiscan Myoview study. Electronically signed by : Ru Quezada MD 12/05/2021 13:16:59
== END ==
PROVIDERS: PCP Nurse Practitioner Family; Visit Provider Physician Assistant
DX: R94.31 Abnormal electrocardiogram [ECG] [EKG] (principal); R93.5 Abnormal findings on diagnostic imaging of other abdominal regions, including retroperitoneum; I10 Essential (primary) hypertension; I73.9 Peripheral vascular disease, unspecified; I77.1 Stricture of artery; R53.83 Other fatigue
CPT/HCPCS: 78452; 93017; A9502; J2785

== ENCOUNTER → 2022-07-31 08:18 | Outpatient (CLI) | payer MEDICARE, SELFPAY ==
--- NOTE | 2022-07-31 08:23 | XR_ITS ---
FINAL REPORT TECHNIQUE: Bone densitometry calculations of the lumbar spine and left hip were obtained. CLINICAL HISTORY: . post menopausal screening, metal in spine FINDINGS: Using the left hip, the bone mineral density of the femoral neck is 0.793 g/cm2, corresponding to a T-score of -1.2. Using the right hip, the bone mineral density of the femoral neck is 0.755 g/cm2, corresponding to a T-score of -0.8. Using the 1/3 wrists, the bone mineral density is 0.564 g/cm2, corresponding to a T-score of -2.2 NOTE: T-score: Standard deviation compared with peak bone mass of young adult mean. *Following the recommendations of the International Society of Bone densitometry, classification of hip BMD is based on the lower of two T-scores; total hip or femoral neck. IMPRESSION: Normal bone mineral density of the right hip. Diminished bone mineral density of the left hip and wrist consistent with osteopenia. FRAX data reports major osteoporotic fracture of 7.6% and hip fracture of 0.5%. Reviewed, Interpreted and Dictated by Naren Davis MD Transcribed by Zara Hu Authenticated and [facility]
--- NOTE | 2022-07-31 08:23 | MM_ITS ---
PROCEDURE INFORMATION: Exam: MG Bilateral Screening 3D Mammography Exam date and time: 07/31/2022 8:22 AM Age: 67 years old Clinical indication: Screening examination TECHNIQUE: Imaging protocol: Bilateral Screening tomosynthesis and 2D mammography including computer-aided detection (CAD) when performed. COMPARISON: 1. MG HAILY JACK DIGITAL SCREEN BILATERAL 07/30/2021 2:03 PM 2. MG HAILY JACK DIGITAL SCREEN BILATERAL 04/12/2019 11:18 AM FINDINGS: MAMMOGRAPHY: Breast composition: The breasts are almost entirely fatty. Mass: None. Architectural distortion: None. Calcifications: No suspicious calcifications. Asymmetric density: None. Skin thickening: None. Axillary adenopathy: None. IMPRESSION: No mammographic evidence of malignancy. Annual screening is recommended unless otherwise clinically indicated. ASSESSMENT: BI-RADS Category 1: Negative
== END ==
PROVIDERS: PCP Nurse Practitioner Family; Visit Provider Nurse Practitioner Family
DX: Z12.31 Encounter for screening mammogram for malignant neoplasm of breast (principal); M85.89 Other specified disorders of bone density and structure, multiple sites
CPT/HCPCS: 77063; 77067; 77080

== ENCOUNTER → 2022-10-05 10:01 | Outpatient (CLI) | payer MEDICARE, OTHER, SELFPAY ==
--- NOTE | 2022-10-05 10:06 | XR_ITS ---
FINAL REPORT CLINICAL HISTORY: LT SHOULDER PAIN,DECREASED ROM FINDINGS: LEFT SHOULDER 3 views of the left shoulder were obtained. There is no acute fracture or dislocation. There are moderate degenerative changes of the glenohumeral joint. The acromioclavicular joint is intact. There is no soft tissue abnormality. IMPRESSION: Moderate degenerative changes of the glenohumeral joint. Reviewed, Interpreted and Dictated by Mitch Nova MD Transcribed by Lolis Lucas Authenticated and [facility]
== END ==
PROVIDERS: PCP Nurse Practitioner Family; Visit Provider Nurse Practitioner Family
DX: M25.512 Pain in left shoulder (principal); M25.612 Stiffness of left shoulder, not elsewhere classified
CPT/HCPCS: 73030

== ENCOUNTER → 2022-10-08 08:08 | Outpatient (CLI) | payer MEDICARE, OTHER, SELFPAY ==
--- NOTE | 2022-10-08 08:11 | MR_ITS ---
FINAL REPORT CLINICAL HISTORY: LEFT ANTERIOR SHOULDER PAIN. limited rom. pain in shoulder. no injury or trauma. FINDINGS: Multi planar MR imaging of the left shoulder was performed. There is heterogeneous abnormal signal in the distal supraspinatus tendon consistent with extensive tendinosis. No full-thickness tear is seen. There is no abnormal fluid in the subacromial/subdeltoid bursa. The anterior and posterior glenoid alber appear intact. The biceps tendon appears intact. There are mild hypertrophic changes of the AC joint. There is moderate narrowing of the glenohumeral joint space with hypertrophic osteophyte formation and degenerative cyst formation. IMPRESSION: Supraspinatus tendinosis without full-thickness tear. Moderate glenohumeral osteoarthritis. Reviewed, Interpreted and Dictated by Naren Davis MD Transcribed by Juan Martino Authenticated and [facility]
== END ==
PROVIDERS: PCP Nurse Practitioner Family; Visit Provider Nurse Practitioner Family
DX: M25.512 Pain in left shoulder (principal); M25.612 Stiffness of left shoulder, not elsewhere classified
CPT/HCPCS: 73221

== ENCOUNTER 2022-12-01 13:00 | Outpatient (RCR) | payer MEDICARE, OTHER, SELFPAY | END 2022-12-01 13:05 | disposition home or self-care (01) | LOC: OT 13:00 | PROVIDERS: PCP Nurse Practitioner Family; Visit Provider Nurse Practitioner Family | DX: M25.512 Pain in left shoulder (principal); M25.612 Stiffness of left shoulder, not elsewhere classified; M75.82 Other shoulder lesions, left shoulder | CPT/HCPCS: 97010; 97014; 97110; 97140; 97164; 97165; 97530; G0283 ==

== ENCOUNTER → 2023-01-25 13:48 | Outpatient (CLI) | payer MEDICARE, OTHER, SELFPAY ==
[2023-01-25 14:26] LABS: Basophils # 0.1 K/mm3 (0-0.2); Eosinophils # 0.5 K/mm3 (0.0-0.4); Eosinophils % 7.3 % (0.1-12.0); Hemoglobin 12.4 g/dL (12.2-16.2); Lymphocytes # 1.7 K/mm3 (0.7-4.5); Lymphocytes % 27.6 % (10-50); Mean Corpuscular HGB Conc 32.7 g/dL (31.8-35.4); Mean Corpuscular Hemoglobin 31.6 pg (27.0-31.2); Mean Corpuscular Volume 96.8 fl (81-99); Mean Platelet Volume 7.3 fl (7.4-10.4); Monocytes # 0.5 K/mm3 (0.1-1.0); Monocytes % 7.6 % (1.7-9.3); Neutrophils # 3.5 K/mm3 (1.8-7.8); Neutrophils % 56.6 % (37.0-80.0); Platelet Count 285 K/mm3 (142-424); Red Blood Count 3.93 M/mm3 (4.20-5.40); Red Cell Distribution Width 13.5 % (11.5-17.5); White Blood Count 6.2 K/mm3 (4.8-10.8)
[2023-01-25 15:52] LABS: Alanine Aminotransferase 23 U/L (12-78); Albumin Level 4.3 g/dl (3.5-5.0); Alkaline Phosphatase 79 U/L (38-126); Anion Gap 11.6 mEq/L (5-15); Aspartate Amino Transferase 32 U/L (14-36); Bilirubin,Direct 0.3 mg/dl (0.0-0.4); Bilirubin,Indirect 0.1 mg/dL (0.0-0.9); Bilirubin,Total 0.4 mg/dl (0.2-1.3); Blood Urea Nitrogen 19 mg/dl (7-17); Calcium 9.1 mg/dl (8.4-10.2); Carbon Dioxide 30 mmol/L (22.0-30.0); Chloride 101 mmol/L (98-107); Chol/HDL Ratio 2.1 (1-3.5); Cholesterol 110 mg/dl (140-200); Estimated Glomerular Filt Rate 84 ml/min (>60); GFR (African American) 102 ML/MIN (>60); Glucose 104 mg/dl (74-100); HDL Cholesterol 53 mg/dl (40-60); Potassium 4.6 mmoL/L (3.5-5.1); Sodium 138 mmol/L (136-145); Total Protein,Serum 6.4 g/dl (6.3-8.2); Triglycerides 179 mg/dl (30-150); VLDL Cholesterol 36 mg/dL (0-40)
[2023-01-25 16:04] LABS: Direct LDL Cholesterol 42.94 mg/dL (100-129)
[2023-01-25 16:09] LABS: Free T4 (Free Thyroxine) 0.92 ng/dl (0.78-2.19)
== END ==
PROVIDERS: PCP Nurse Practitioner Family; Visit Provider Nurse Practitioner
DX: E78.2 Mixed hyperlipidemia (principal); I10 Essential (primary) hypertension; I73.9 Peripheral vascular disease, unspecified; I77.4 Celiac artery compression syndrome; R06.00 Dyspnea, unspecified; I11.9 Hypertensive heart disease without heart failure; E11.9 Type 2 diabetes mellitus without complications; I63.9 Cerebral infarction, unspecified
CPT/HCPCS: 36415; 80048; 80061; 80076; 84439; 84443; 85025

== ENCOUNTER 2023-02-09 09:52 | Emergency (ER) | payer MEDICARE, OTHER, SELFPAY ==
[2023-02-09 10:00] VITALS: BP 132/87; PULSE 87; RESP 20; TEMP 37.1; O2SAT 97; BMI 30.1
--- NOTE | 2023-02-09 10:10 | EXP.UTC ---
Discharge Plan Disposition Patient Disposition: Home, Self-Care Condition: Good Prescriptions Prescriptions: New ciprofloxacin HCl 0.3 % drops See Rx Instructions .ROUTE .COMPLEX Qty: 5 0RF Rx Instructions: put 2 drps in both eyes every 2hr x2days; then 1 drop 4 times/day x5days No Action meloxicam 7.5 mg tablet 7.5 mg PO DAILY PRN (Reason: Pain) Label Comments: TAKE 1 TABLET BY MOUTH ONCE DAILY vitamin B complex [B Complex-Vitamin B12] Tablet 1 tab PO DAILY lisinopril 10 mg tablet 10 mg PO DAILY Qty: 90 3RF atorvastatin 40 mg tablet 40 mg PO DAILY metoprolol succinate [Toprol XL] 50 mg tablet extended release 24 hr 50 mg PO DAILY clopidogrel 75 mg tablet 75 mg PO DAILY fluoxetine 20 MG capsule 20 mg PO DAILY cyclobenzaprine 10 MG tablet 10 mg PO TIDP PRN (Reason: leg cramps) Referrals Follow up/Referrals: Anne Ling APRN [Primary Care Provider] - See instructions Activity Restrictions/Add. Instructions Additional Instructions/Restrictions: Use the eye drops as directed. Follow up with your regular doctor. Follow up with an eye doctor. GO TO THE ER FOR ANY WORSENING SYMPTOMS Clinical Impressions Clinical Impression: Bilateral conjunctivitis Instructions Patient Instructions: How to Instill Eye Drops, DI for Conjunctivitis Discharge ED Provider: Corbin Murray [facility] General Stated complaint: possible pink eye or sinus drainage in eye Time Seen by Provider: 02/09/23 09:55 History of Present Illness Provider Complaint: She states that she has had bilateral eye redness and irritation for the past 2 days. Related Data Home Medications Medication Instructions Recorded Confirmed cyclobenzaprine 10 mg tablet 10 mg PO TIDP PRN leg cramps 09/08/21 02/09/23 fluoxetine 20 mg capsule 20 mg PO DAILY mood 09/08/21 02/09/23 meloxicam 7.5 mg tablet 7.5 mg PO DAILY PRN Pain 11/10/21 02/09/23 vitamin B complex (B 1 tab PO DAILY 01/21/22 01/25/23 Complex-Vitamin B12 tablet) atorvastatin 40 mg tablet 40 mg PO DAILY High cholesterol 02/09/23 02/09/23 clopidogrel 75 mg tablet 75 mg PO DAILY Blood thinner 02/09/23 02/09/23 metoprolol succinate 50 mg 50 mg PO DAILY . 02/09/23 02/09/23 tablet,extended release 24 hr (Toprol XL) Previous Rx's Medication Instructions Recorded lisinopril 10 mg tablet 10 mg PO DAILY Hypertension #90 07/22/22 tabs ciprofloxacin HCl 0.3 % eye drops See Rx Instructions ophthalmic 02/09/23 (eye) .COMPLEX #5 mL Allergies Allergy/AdvReac Type Severity Reaction Status Date / Time No Known Allergies Allergy Verified 02/09/23 10:14 [facility] Disclaimer: The information contained in this section may have been updated after the patient was seen, as this information can be updated by other users. Medical History Abnormal computed tomography angiography (CTA) of abdomen Abnormal electrocardiography HTN (hypertension) Sinus tachycardia Weight loss Social History Smoking Status: Former smoker pack-years: 25 second hand exposure: No alcohol intake: never substance use type: denies use current occupational status: employed Travel in the last 8 weeks: Inside the [place] household members: spouse housing: house current occupation: [employer] current occupational exposures/hazards: No caffeine: Yes ROS Obtained: Yes All systems reviewed & no additional complaints except as documented Constitutional Constitutional: Denies chills and Denies fever(s) Eyes Eyes: Reports eye discharge ENT Ears, Nose, Mouth, and Throat: Denies dizziness, Denies otalgia and Denies sore throat Cardiovascular Cardiovascular: Denies chest pain Respiratory Respiratory: Denies shortness of breath, Denies chest congestion, Denies cough, Denies stridor and Denies wheezing Gastroi
[2023-02-09 10:26] VITALS: BP 132/87; PULSE 87; RESP 20; TEMP 37.1; O2SAT 97
== END 2023-02-09 10:26 | disposition home or self-care (01) ==
PROVIDERS: Emergency Provider Nurse Practitioner Family; PCP Nurse Practitioner Family
DX: H10.33 Unspecified acute conjunctivitis, bilateral (principal); Z87.891 Personal history of nicotine dependence
CPT/HCPCS: 99212; 99214; G0463

== ENCOUNTER 2023-06-10 14:00 | Outpatient (RCR) | payer MEDICARE, OTHER, SELFPAY | END 2023-06-10 14:05 | disposition home or self-care (01) | LOC: OT 14:00 | PROVIDERS: PCP Nurse Practitioner Family; Visit Provider Orthopaedic Surgery | DX: M25.512 Pain in left shoulder (principal); M75.02 Adhesive capsulitis of left shoulder | CPT/HCPCS: 97010; 97014; 97110; 97140; 97164; 97165; 97530; G0283 ==

== ENCOUNTER → 2023-08-02 07:39 | Outpatient (CLI) | payer MEDICARE, OTHER, SELFPAY ==
--- NOTE | 2023-08-02 07:42 | MM_ITS ---
PROCEDURE INFORMATION: Exam: MG Bilateral Screening 3D Mammography Exam date and time: 08/02/2023 7:35 AM Age: 68 years old Clinical indication: Screening examination TECHNIQUE: Imaging protocol: Bilateral Screening tomosynthesis and 2D mammography including computer-aided detection (CAD) when performed. COMPARISON: 1. MG MM DIG SCREENING MAMM BI W/CAD 07/31/2022 8:22 AM 2. MG HAILY JACK DIGITAL SCREEN BILATERAL 07/30/2021 2:03 PM FINDINGS: MAMMOGRAPHY: Breast composition: The breasts are almost entirely fatty. Mass: None. Architectural distortion: None. Calcifications: No suspicious calcifications. Asymmetric density: None. Skin thickening: None. Axillary adenopathy: None. IMPRESSION: No mammographic evidence of malignancy. Annual screening is recommended unless otherwise clinically indicated. ASSESSMENT: BI-RADS Category 1: Negative
== END ==
PROVIDERS: PCP Family Medicine; Visit Provider Family Medicine
DX: Z12.31 Encounter for screening mammogram for malignant neoplasm of breast (principal)
CPT/HCPCS: 77063; 77067

== ENCOUNTER 2024-01-24 13:47 | Outpatient (CLI) | payer MEDICARE, OTHER, SELFPAY ==
[2024-01-24 14:49] LABS: Basophils # 0.1 K/mm3 (0-0.2); Basophils % 0.7 % (0.1-2.0); Eosinophils # 0.3 K/mm3 (0.0-0.4); Eosinophils % 4.8 % (0.1-12.0); Hematocrit 37.9 % (37.0-47.0); Hemoglobin 12.3 g/dL (12.2-16.2); Lymphocytes # 2.3 K/mm3 (0.7-4.5); Lymphocytes % 32.4 % (10-50); Mean Corpuscular HGB Conc 32.5 g/dL (31.8-35.4); Mean Corpuscular Hemoglobin 31.9 pg (27.0-31.2); Mean Corpuscular Volume 98.1 fl (81-99); Mean Platelet Volume 7.7 fl (7.4-10.4); Monocytes # 0.3 K/mm3 (0.1-1.0); Monocytes % 4.9 % (1.7-9.3); Neutrophils % 57.2 % (37.0-80.0); Platelet Count 311 K/mm3 (142-424); Red Blood Count 3.87 M/mm3 (4.20-5.40); Red Cell Distribution Width 13.6 % (11.5-17.5); White Blood Count 7.1 K/mm3 (4.8-10.8)
[2024-01-24 15:33] LABS: Albumin Level 4.1 g/dl (3.5-5.0); Alkaline Phosphatase 84 U/L (38-126); Anion Gap 12.6 mEq/L (5-15); Bilirubin,Direct 0.2 mg/dl (0.0-0.4); Bilirubin,Total 0.2 mg/dl (0.2-1.3); Blood Urea Nitrogen 19 mg/dl (7-17); Calcium 9.8 mg/dl (8.4-10.2); Carbon Dioxide 27 mmol/L (22.0-30.0); Chloride 103 mmol/L (98-107); Chol/HDL Ratio 2.7 (1-3.5); Cholesterol 124 mg/dl (140-200); Estimated Glomerular Filt Rate 72 ml/min (>60); GFR (African American) 87 ML/MIN (>60); Glucose 100 mg/dl (74-100); HDL Cholesterol 46 mg/dl (40-60); Magnesium 1.9 mg/dl (1.6-2.3); Potassium 4.6 mmoL/L (3.5-5.1); Sodium 138 mmol/L (136-145); Total Protein,Serum 6.3 g/dl (6.3-8.2); Triglycerides 173 mg/dl (30-150); VLDL Cholesterol 35 mg/dL (0-40)
[2024-01-24 15:35] LABS: Alanine Aminotransferase 20 U/L (12-78); Aspartate Amino Transferase 26 U/L (14-36)
[2024-01-24 15:45] LABS: Direct LDL Cholesterol 51.68 mg/dL (100-129)
[2024-01-24 15:52] LABS: Free T4 (Free Thyroxine) 1.09 ng/dl (0.78-2.19)
[2024-01-24 16:05] LABS: Thyroid Stimulating Hormone 2.48 uIU/mL (0.465-4.68)
== END 2024-01-24 23:59 ==
LOC: LAB 13:48
PROVIDERS: PCP Family Medicine; Visit Provider Internal Medicine
DX: I73.9 Peripheral vascular disease, unspecified (principal); E78.2 Mixed hyperlipidemia; I77.4 Celiac artery compression syndrome; I10 Essential (primary) hypertension; Z87.891 Personal history of nicotine dependence
CPT/HCPCS: 36415; 80048; 80061; 80076; 83735; 84439; 84443; 85025

== ENCOUNTER 2024-07-26 13:26 | Outpatient (CLI) | payer MEDICARE, OTHER, SELFPAY ==
[2024-07-26 13:48] LABS: Basophils # 0.1 K/mm3 (0-0.2); Basophils % 0.9 % (0.1-2.0); Eosinophils # 0.3 K/mm3 (0.0-0.4); Eosinophils % 4.3 % (0.1-12.0); Hematocrit 38.7 % (37.0-47.0); Hemoglobin 12.3 g/dL (12.2-16.2); Lymphocytes # 2.2 K/mm3 (0.7-4.5); Lymphocytes % 30.3 % (10-50); Mean Corpuscular HGB Conc 31.8 g/dL (31.8-35.4); Mean Corpuscular Volume 97.4 fl (81-99); Mean Platelet Volume 7.2 fl (7.4-10.4); Monocytes # 0.5 K/mm3 (0.1-1.0); Monocytes % 6.3 % (1.7-9.3); Neutrophils # 4.3 K/mm3 (1.8-7.8); Neutrophils % 58.2 % (37.0-80.0); Platelet Count 373 K/mm3 (142-424); Red Blood Count 3.97 M/mm3 (4.20-5.40); White Blood Count 7.3 K/mm3 (4.8-10.8)
[2024-07-26 14:16] LABS: Chloride 104 mmol/L (98-107); Potassium 4.4 mmoL/L (3.5-5.1); Sodium 138 mmol/L (136-145)
[2024-07-26 14:19] LABS: Anion Gap 7.4 mEq/L (5-15); Blood Urea Nitrogen 13 mg/dl (7-17); Calcium 9.5 mg/dl (8.4-10.2); Carbon Dioxide 31 mmol/L (22.0-30.0); Estimated Glomerular Filt Rate 83 ml/min (>60); GFR (African American) 101 ML/MIN (>60); Glucose 96 mg/dl (74-100)
== END 2024-07-26 23:59 | disposition home or self-care (01) ==
LOC: LAB 13:28
PROVIDERS: PCP Family Medicine; Visit Provider Internal Medicine
DX: K21.9 Gastro-esophageal reflux disease without esophagitis (principal); I77.4 Celiac artery compression syndrome; E78.2 Mixed hyperlipidemia; I73.9 Peripheral vascular disease, unspecified; I10 Essential (primary) hypertension
CPT/HCPCS: 36415; 80048; 85025

== ENCOUNTER 2024-08-04 09:48 | Outpatient (CLI) | payer MEDICARE, OTHER, SELFPAY ==
--- NOTE | 2024-08-04 09:51 | MM_ITS ---
PROCEDURE INFORMATION: Exam: MG Bilateral Screening 3D Mammography Exam date and time: 08/04/2024 9:42 AM Age: 69 years old Clinical indication: Screening examination TECHNIQUE: Imaging protocol: Bilateral Screening tomosynthesis and 2D mammography including computer-aided detection (CAD) when performed. COMPARISON: 1. MG MM DIG SCREENING MAMM BI W/CAD 08/02/2023 7:35 AM 2. MG MM DIG SCREENING MAMM BI W/CAD 07/31/2022 8:22 AM 3. MG HAILY JACK DIGITAL SCREEN BILATERAL 07/30/2021 2:03 PM 4. MG HAILY JACK DIGITAL SCREEN BILATERAL 04/12/2019 11:18 AM FINDINGS: MAMMOGRAPHY: Breast composition: There are scattered areas of fibroglandular density. Mass: None. Architectural distortion: No new or suspicious architectural distortion. Calcifications: No new or suspicious calcifications are present Asymmetric density: No new or suspicious asymmetric density is present Skin thickening: None. Axillary adenopathy: None. IMPRESSION: No mammographic evidence of malignancy. Recommend annual screening mammography unless otherwise clinically indicated. ASSESSMENT: BI-RADS category 1: Negative.
== END 2024-08-04 23:59 | disposition home or self-care (01) ==
LOC: RAD 09:49
PROVIDERS: PCP Family Medicine; Visit Provider Nurse Practitioner
DX: Z12.31 Encounter for screening mammogram for malignant neoplasm of breast (principal)
CPT/HCPCS: 77063; 77067

== ENCOUNTER 2024-09-12 10:25 | Day surgery (SDC) | payer MEDICARE, OTHER, SELFPAY ==
[2024-09-05 13:56] VITALS: BMI 30.1
[2024-09-12 10:39] VITALS: BP 137/84; PULSE 80; RESP 16; TEMP 36.6; O2SAT 97
--- NOTE | 2024-09-12 10:42 | EXP.ANES.CKL ---
[facility] Disclaimer: The information contained in this section may have been updated after the patient was seen, as this information can be updated by other users. Medical History Sinus tachycardia Abnormal computed tomography angiography (CTA) of abdomen HTN (hypertension) Weight loss Abnormal electrocardiography Surgical History History of back surgery History of tonsillectomy Family History Other No significant family history Social History Smoking Status: Former smoker tobacco type: cigarettes packs per day: 2 second hand exposure: No alcohol intake: never substance use type: denies use current occupational status: employed Travel in the last 8 weeks: [place] the [place] household members: spouse housing: house current occupation: [employer] current occupational exposures/hazards: No caffeine: Yes [facility] Anesthesia Checklist Patient Identification Patient Identification: Arm Band and Verbal (Name & ) Structural Data Admitted From: Home Planned Operative Procedure/s: Colonoscopy Consent for Planned Operative Procedure(s) Verified: Yes Verified Documents: Surgical Consent and History and Physical NPO Status Verified Time NPO: 07:00 Chart Verification Results Verified: CBC, BMP and ECG Additional verifications Patient : No Anesthesia Reactions: No Cardiovascular Assessment Heart Sounds: S1 & S2 Pulse Rhythm: Irregular Peripheral Edema: No Airway Assessment Mallampati Score:: Class II C-Spine Mobility Assessed: Yes (FROM demonstrated) TMJ Mobility Assessed: Yes Dentition: Good Dentition (Nothing loose per pt.) Neurological Assessment Level of Consciousness: Awake, Alert, Appropriate and Follows Commands Hx Seizures: No Numbness or tingling in extremities: No Anesthesia Plan Anesthesia Risk discussed: Yes Anesthesia Plan: Verified ASA Class: III Anesthesia Type: MAC
--- NOTE | 2024-09-12 10:43 | HMH.SCOPE ---
Procedure: Date: 09/12/24 Patient Date of :: 1955 Procedure Performed:: Colonoscopy Indications:: History of colon polyps Performing Provider:: Casper Rothman MD Referring Provider:: . Sedation:: Monitored anesthesia care Procedure:: After informed consent was obtained the patient was taken to the endoscopy suite. Sedation ensued after the patient was transferred to the left lateral decubitus position. Pulse, blood pressure, and oxygen saturation were monitored throughout the procedure. Digital rectal exam revealed no significant abnormality. The colonoscope was placed in position. The entire colon was evaluated. The colonoscope was carefully removed and the patient was transferred to recovery in stable condition. Please see findings and specimens below for detail. Findings:: Bowel preparation moderate Significant spasticity/lack of relaxation Moderate tortuosity Specimens:: None Recommendations:: Repeat colonoscopy in 3-5 years with alternate/extended bowel preparation secondary to history of polyps, moderate preparation, spasticity/lack of relaxation, and tortuosity. Complications:: No immediate Estimated blood obtained (mL): 0 Colonoscopy Component Colonoscopy Component Was a colonoscopy performed during today's procedure?: Yes Recommended follow up colonoscopy of at least 10 years?: No If no, follow up colonoscopy recommended in ___ years?: (See above) Reason for not recommending >/= 10 yr follow-up interval?: (See above)
[2024-09-12] MEDS: LACTATED RINGERS 1000ML 1,000 ML 25 ML IV (10:44)
[2024-09-12 10:49] VITALS: O2SAT 99
[2024-09-12 11:30] VITALS: BP 95/54; PULSE 72; RESP 18; TEMP 36.2; O2SAT 98
[2024-09-12 11:45] VITALS: BP 99/47; PULSE 74; RESP 18; O2SAT 97
[2024-09-12 12:00] VITALS: BP 112/67; PULSE 71; RESP 18; O2SAT 94
== END 2024-09-12 12:00 | disposition home or self-care (01) ==
PROVIDERS: PCP Family Medicine; Visit Provider Surgery
PROC: 0DJD8ZZ Inspection of Lower Intestinal Tract, Via Natural or Artificial Opening Endoscopic (ICD-10-PCS; CPT 45378; principal; 2024-09-12 12:30)
DX: Z09 Encounter for follow-up examination after completed treatment for conditions other than malignant neoplasm (principal); Z86.0100 Personal history of colon polyps, unspecified
CPT/HCPCS: 45378; J2704; J7120

== ENCOUNTER 2025-01-23 14:03 | Outpatient (CLI) | payer MEDICARE, OTHER, SELFPAY ==
[2025-01-23 14:35] LABS: Basophils % 0.5 % (0.1-2.0); Eosinophils # 0.4 K/mm3 (0.0-0.4); Eosinophils % 5.4 % (0.1-12.0); Hematocrit 36.8 % (37.0-47.0); Hemoglobin 12.1 g/dL (12.2-16.2); Lymphocytes % 30.7 % (10-50); Mean Corpuscular HGB Conc 32.9 g/dL (31.8-35.4); Mean Corpuscular Hemoglobin 30.9 pg (27.0-31.2); Mean Corpuscular Volume 93.9 fl (81-99); Mean Platelet Volume 8.9 fl (7.4-10.4); Monocytes # 0.4 K/mm3 (0.1-1.0); Monocytes % 6.8 % (1.7-9.3); Neutrophils # 3.7 K/mm3 (1.8-7.8); Neutrophils % 56.3 % (37.0-80.0); Platelet Count 261 K/mm3 (142-424); Red Blood Count 3.92 M/mm3 (4.20-5.40); Red Cell Distribution Width 12.8 % (11.5-17.5); White Blood Count 6.5 K/mm3 (4.8-10.8)
[2025-01-23 15:49] LABS: Albumin Level 4.5 g/dl (3.5-5.0); Chloride 102 mmol/L (98-107); Potassium 3.8 mmoL/L (3.5-5.1); Sodium 139 mmol/L (136-145)
[2025-01-23 15:51] LABS: Blood Urea Nitrogen 15 mg/dl (7-17); Estimated Glomerular Filt Rate 83 ml/min (>60); GFR (African American) 101 ML/MIN (>60)
[2025-01-23 15:52] LABS: Alanine Aminotransferase 22 U/L (12-78); Alkaline Phosphatase 82 U/L (38-126); Anion Gap 11.8 mEq/L (5-15); Aspartate Amino Transferase 27 U/L (14-36); Calcium 9.4 mg/dl (8.4-10.2); Carbon Dioxide 29 mmol/L (22.0-30.0); Cholesterol 135 mg/dl (140-200); Glucose 100 mg/dl (74-100); Total Protein,Serum 6.5 g/dl (6.3-8.2); Triglycerides 235 mg/dl (30-150); VLDL Cholesterol 47 mg/dL (0-40)
[2025-01-23 15:53] LABS: Chol/HDL Ratio 2.2 (1-3.5); HDL Cholesterol 61 mg/dl (40-60); Magnesium 1.7 mg/dl (1.6-2.3)
[2025-01-23 16:04] LABS: Direct LDL Cholesterol 44.84 mg/dL (100-129)
[2025-01-23 16:10] LABS: Free T4 (Free Thyroxine) 1.03 ng/dl (0.78-2.19)
[2025-01-23 16:26] LABS: Thyroid Stimulating Hormone 2.75 uIU/mL (0.465-4.68)
[2025-01-23 22:12] LABS: Bilirubin,Direct 0.7 mg/dl (0.0-0.4)
[2025-01-23 22:31] LABS: Bilirubin,Total 0.7 mg/dl (0.2-1.3); Bilirubin,Unconjugated 0.1 mg/dL (0.0-1.1)
== END 2025-01-23 23:59 | disposition home or self-care (01) ==
LOC: LAB 14:05
PROVIDERS: PCP Family Medicine; Visit Provider Internal Medicine
DX: E78.2 Mixed hyperlipidemia (principal); I73.9 Peripheral vascular disease, unspecified; I77.4 Celiac artery compression syndrome; I10 Essential (primary) hypertension
CPT/HCPCS: 36415; 80048; 80061; 80076; 83735; 84439; 84443; 85025

== ENCOUNTER 2025-08-15 11:50 | Outpatient (CLI) | payer MEDICARE, OTHER, SELFPAY ==
[2025-08-15 12:14] LABS: Hematocrit 37.1 % (37.0-47.0); Hemoglobin 12.0 g/dL (12.2-16.2); Immature Granulocytes % 0.2 %; Mean Corpuscular HGB Conc 32.3 g/dL (31.8-35.4); Mean Corpuscular Hemoglobin 31.2 pg (27.0-31.2); Mean Corpuscular Volume 96.4 fl (81-99); Nucleated Red Blood Cells % 0 %; Platelet Count 268 K/mm3 (142-424); Red Blood Count 3.85 M/mm3 (4.20-5.40); Red Cell Distribution Width-SD 45.1 fL; White Blood Count 6.3 K/mm3 (4.8-10.8)
[2025-08-15 13:36] LABS: Alanine Aminotransferase 17 U/L (12-78); Albumin Level 4.2 g/dl (3.5-5.0); Alkaline Phosphatase 78 U/L (38-126); Anion Gap 13.2 mEq/L (5-15); Aspartate Amino Transferase 23 U/L (14-36); Bilirubin,Direct 0.5 mg/dl (0.0-0.4); Bilirubin,Indirect 0.1 mg/dL (0.0-0.9); Bilirubin,Total 0.6 mg/dl (0.2-1.3); Bilirubin,Unconjugated 0.1 mg/dL (0.0-1.1); Blood Urea Nitrogen 19 mg/dl (7-17); Calcium 9.4 mg/dl (8.4-10.2); Carbon Dioxide 28 mmol/L (22.0-30.0); Chloride 101 mmol/L (98-107); Cholesterol 133 mg/dl (140-200); Creatinine,Serum 0.90 mg/dl (0.52-1.04); Estimated Glomerular Filt Rate 62 ml/min (>60); GFR (African American) 75 ML/MIN (>60); Glucose 75 mg/dl (74-100); HDL Cholesterol 55 mg/dl (40-60); Magnesium 1.9 mg/dl (1.6-2.3); Potassium 4.2 mmoL/L (3.5-5.1); Sodium 138 mmol/L (136-145); Total Protein,Serum 6.2 g/dl (6.3-8.2); Triglycerides 188 mg/dl (30-150)
[2025-08-15 13:38] LABS: Free T4 (Free Thyroxine) 1.09 ng/dl (0.78-2.19)
[2025-08-15 23:30] LABS: Thyroid Stimulating Hormone 1.75 uIU/mL (0.465-4.68)
== END 2025-08-15 23:59 | disposition home or self-care (01) ==
LOC: LAB 11:51
PROVIDERS: PCP Family Medicine; Visit Provider Internal Medicine
DX: E78.5 Hyperlipidemia, unspecified (principal); I10 Essential (primary) hypertension
CPT/HCPCS: 36415; 80048; 80061; 80076; 83735; 84439; 84443; 85025